=== PATIENT | female | born 1940 | race African-American/Black ===

== ENCOUNTER 2019-05-22 18:58 | Inpatient (IN) | payer OTHER ==
[~2019-05-22] VITALS: Ht 154.9 cm; Wt 53.3 kg
--- NOTE | 2019-05-22 19:09 | Emergency Room Report ---
History of Present Illness General Chief Complaint: General Complaint Source: Patient, Caregiver Present Illness HPI Brought into the emergency department because she refuses to eat. Not eaten for 3 days according to family. She states that she does not want to eat. She denies any pain in place she denies vomiting or diarrhea. Patient anxious. She denies depression. She will not answer as to why she does not want to eat. (Suspect underlying psychiatric or developmental disorder but caretakers not forthcoming.) No fevers, chills, sore throat, chest pain, palpitations, dysuria, abdominal pain, shortness of breath, joint pain, rashes, depression, anxiety, visual changes, headache. Questionable accuracy of answers. 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 Nursing Documentation: PMH: Agreed; PSxH: Agreed Nursing Documentation-PMH Past Medical History Deferred: No Family Available Hx Hypertension: Yes Review of Systems All Other Systems: negative except mentioned in HPI - Accuracy questionable Physical Exam Vital Signs Date Time Temp Pulse Resp B/P (MAP) Pulse Ox O2 Delivery O2 Flow Rate FiO2 05/22/19 19:03 98.2 98 16 183/96 (125) 96 Room Air Sp02 EP Interpretation: reviewed, normal General Appearance: alert, mild distress - With anxiety, Chronically Ill Head: normocephalic, atraumatic Eyes: bilateral eye normal inspection, bilateral eye PERRL, bilateral eye EOMI ENT: moist mucus membranes Neck: supple Respiratory: chest non-tender, lungs clear, normal breath sounds Cardiovascular #1: regular rate, rhythm, no edema Cardiovascular #2: 2+ radial (R) Gastrointestinal: non tender, soft, no mass, no organomegaly Genitourinary: no CVA tenderness Psychiatric: anxious - Perseverating Medical Decision Making Diagnostic Impression: Primary Impression: Failure to thrive Qualified Codes: R62.7 - Adult failure to thrive Additional Impressions: Hypoglycemia Pyuria ER Course Patient presents with refusal to eat for 3 days. Differential includes acute myocardial infarction, occult infection, exacerbation of underlying anxiety or psychiatric illness, dehydration, failure to thrive amongst others. Evaluation with EKG, and labs. Treatment with IV hydration. As the patient is agitated at this time Ativan and Benadryl will be administered. There is a paucity of historical information coming from the caretakers. This is a complicated patient. Nonfocal neurologic exam and clear lungs no imaging studies indicated at the moment. EKG with normal sinus rhythm, left atrial enlargement and nonspecific ST-T wave changes. Prolonged QT interval of 490. Labs with normal white count. CMP unremarkable. Troponin upper limits of normal. Discussed with Dr. Gonzalez who accepts the patient. Urine not obtained until late. Urine is clear. Low blood sugar was not reported by lab. Ordered D50W. Also D51/2NS. Attempt to query medications. Unable to contact exhibit designer or family. Urine returns with pyuria after patient admitted to floor. Laboratory Tests Test 05/22/19 19:15 05/22/19 22:00 White Blood Count 4.7 K/UL (4.8-10.8) L Red Blood Count 4.91 M/UL (4.20-5.40) Hemoglobin 13.5 G/DL (12.0-16.0) Hematocrit 43.8 % (37.0-47.0) Mean Corpuscular Volume 89 FL (80-99) Mean Corpuscular Hemoglobin 27.4 PG (27.0-31.0) Mean Corpuscular Hemoglobin Concent 30.7 G/DL (32.0-36.0) L Red Cell Distribution Width 11.9 % (11.6-14.8) Platelet Count 298 K/UL (150-450) Mean Platelet Volume 9.5 FL (6.5-10.1) Neutrophils (%) (Auto) 53.7 % (45.0-75.0) Lymphocytes (%) (Auto) 31.3 % (20.0-45.0) Monocytes (%) (Auto) 12.1 % (1.0-10.0) H Eosinophils (%) (Auto) 0.6 % (0.0-3.0) Basophils (%) (Auto) 2.4 % (0.0-2.0) H Prothrombin Time 12.7 SEC (9.30-11.50) H Prothrombin Time INR 1.2 (0.9-1.1) H PTT 34 SEC (23-33) H Sodium Level 141 MMOL/L (136-145) Potassium Level 3.5 MMOL/L (3.5-5.1) Chloride Level 100 MMOL/L (98-107) Carbon Dioxide Level 24 MMOL/L (21-32) Anion Gap 17 mmol/L (5-15) H Blood Urea Nitrogen 12 mg/dL (7-18) Creatinine 0.5 MG/DL (0.55-1.30) L Estimate Glomerular Filtration Rate mL/min (>60) Glucose Level 48 MG/DL (74-106) L Calcium Level 10.4 MG/DL (8.5-10.1) H Total Bilirubin 0.8 MG/DL (0.2-1.0) Aspartate Amino Transferase (AST) 21 U/L (15-37) Alanine Aminotransferase (ALT) 18 U/L (12-78) Alkaline Phosphatase 134 U/L (46-116) H Total Creatine Kinase 70 U/L (26-308) Troponin I 0.052 ng/mL (0.000-0.056) Pro-B-Type Natriuretic Peptide 1860 pg/mL (0-125) H Total Protein 8.5 G/DL (6.4-8.2) H Albumin 3.9 G/DL (3.4-5.0) Globulin 4.6 g/dL Albumin/Globulin Ratio 0.8 (1.0-2.7) L Urine Color Pale yellow Urine Appearance Clear Urine pH 5 (4.5-8.0) Urine Specific [place] 1.015 (1.005-1.035) Urine Protein 1+ (NEGATIVE) H Urine Glucose (UA) Negative (NEGATIVE) Urine Ketones 4+ (NEGATIVE) H Urine Blood 1+ (NEGATIVE) H Urine Nitrite Negative (NEGATIVE) Urine Bilirubin Negative (NEGATIVE) Urine Urobilinogen Normal MG/DL (0.0-1.0) Urine Leukocyte Esterase 2+ (NEGATIVE) H Urine RBC 2-4 /HPF (0 - 2) H Urine WBC 10-15 /HPF (0 - 2) H Urine Squamous Epithelial Cells Occasional /LPF Urine Bacteria Few /HPF (NONE) EKG Diagnostic Results Rate: normal Rhythm: NSR ST Segments: no acute changes - Nonspecific ST-T wave changes Rhythm Strip Diag. Results EP Interpretation: yes Rhythm: NSR, no PVC's, no ectopy Last Vital Signs Date Time Temp Pulse Resp B/P (MAP) Pulse Ox O2 Delivery O2 Flow Rate FiO2 05/23/19 00:30 Room Air 05/23/19 00:01 97.3 88 16 156/98 (731) 97 Status: improved Disposition: PLACE IN OBSERVATION Condition: Serious Deepak Patrick MD May 22, 2019 19:09
[2019-05-22] MEDS ORDERED: DiphenhydrAMINE 50mg/ml Inj IVP ONE (19:15)
[2019-05-22] MEDS ORDERED: LORazepam Inj 2mg/ml 1ml IV ONE (19:15)
--- NOTE | 2019-05-22 19:23 | NUR ---
ED Nurse Note: pt brought in by daughter c/c failure to thrive and decrease in appetite, per daughter's statement, last known meal was on and pt hasn't been eating since then. pt's daughter states pt has been refusing eating. pt refused to answer questions and continuously stating " I want to go home". unable to assess pt's A&o status, according to daughter, pt normal neuro status is A&ox4, able to answer questions. noted pt high BP but noted pt in disterss and increase in anxiety. will cont monitor. daughter at the bedside.
--- NOTE | 2019-05-22 19:31 | NUR ---
HAND-OFF: Report given to RN Spenser and endorsed care, pt's daughter at the bedside, resp even and unlabored on RA, iv intact and patent with NS running.
[2019-05-22 19:33] LABS: ANION GAP 17 mmol/L (5-15); BLOOD UREA NITROGEN 12 mg/dL (7-18); CALCIUM 10.4 MG/DL (8.5-10.1); CARBON DIOXIDE 24 MMOL/L (21-32); CHLORIDE 100 MMOL/L (98-107); CREATININE 0.5 MG/DL (0.55-1.30); POTASSIUM 3.5 MMOL/L (3.5-5.1); SODIUM 141 MMOL/L (136-145)
[2019-05-22 19:34] LABS: BASOPHILS % (AUTO) 2.4 % (0.0-2.0); EOSINOPHILS % (AUTO) 0.6 % (0.0-3.0); HEMATOCRIT 43.8 % (37.0-47.0); HEMOGLOBIN 13.5 G/DL (12.0-16.0); LYMPHOCYTES % (AUTO) 31.3 % (20.0-45.0); MEAN CORPUSCULAR VOLUME 89 FL (80-99); MONOCYTES % (AUTO) 12.1 % (1.0-10.0); NEUTROPHILS % (AUTO) 53.7 % (45.0-75.0); PLATELET COUNT 298 K/UL (150-450); RED BLOOD COUNT 4.91 M/UL (4.20-5.40); RED CELL DISTRIBUTION WIDTH 11.9 % (11.6-14.8); WHITE BLOOD COUNT 4.7 K/UL (4.8-10.8)
--- NOTE | 2019-05-22 19:35 | NUR ---
ED Nurse Note: Received report from DEVON Rodríguez. patient at no distress at this time and is more calm. will wait for further orders
[2019-05-22 19:37] LABS: INR 1.2 (0.9-1.1)
[2019-05-22 19:44] LABS: ALANINE AMINOTRANSFERASE 18 U/L (12-78); ALBUMIN 3.9 G/DL (3.4-5.0); ALBUMIN/GLOBULIN RATIO 0.8 (1.0-2.7); ALKALINE PHOSPHATASE 134 U/L (46-116); ASPARTATE AMINO TRANSFERASE 21 U/L (15-37); BILIRUBIN,TOTAL 0.8 MG/DL (0.2-1.0); CREATINE KINASE 70 U/L (26-308)
--- NOTE | 2019-05-22 19:44 | NUR ---
Patient's Daughter RAFAEL contact info: [phone]
[2019-05-22 20:01] VITALS: BP 149/90
--- NOTE | 2019-05-22 20:58 | NUR ---
Face sheet, EKG, dictation and clinicals faxed to Shanti as requested to [phone]
[2019-05-22 23:12] LABS: APPEARANCE,URINE CLEAR; BILIRUBIN, URINE NEGATIVE (NEGATIVE); COLOR,URINE PALE YELLOW; GLUCOSE, URINE (UA) NEGATIVE (NEGATIVE); KETONES,URINE 4+ (NEGATIVE); LEUKOCYTE ESTERASE ,URINE 2+ (NEGATIVE); NITRITE,URINE NEGATIVE (NEGATIVE); PH,URINE 5 (4.5-8.0); PROTEIN,URINE 1+ (NEGATIVE); UROBILINOGEN,URINE NORMAL MG/DL (0.0-1.0)
[2019-05-22] MEDS ORDERED: D5 1/2NS w/KCl 20mEq 1,000 ML IV SCH (23:15)
--- NOTE | 2019-05-22 23:20 | NUR ---
TRANSFER TO FLOOR: Patient transferred to as ordered, per Dr Gonzalez. Report given to DEVON Mota. Belongings and medications given to . Family and or S/O informed of transfer.
--- NOTE | 2019-05-23 | NUR ---
NURSE NOTES: Pt admitted to floor via gurney for FTT. Pt is aox1, calm, and cooperative. Noted several healing pressure sores, pictures taken, initiated wound care protocol. Safe environment provided for patient. Instructed not to get up unassisted. Bed locked in low position, bed alarm on. Spoke with Audrey, daughter. medical information provided by daughter. Per Audrey, unsure of BP medication name & dose. She will bring medication to hospital in AM.
[2019-05-23 00:01] VITALS: BP 156/98
[2019-05-23] MEDS ORDERED: UNOBMED (00:32)
--- NOTE | 2019-05-23 00:50 | NUR ---
NURSE NOTES: Called Dr. Gonzalez for admission orders. MD answered and adm orders received. Will carry out.
[2019-05-23 04:00] VITALS: BP 152/81
--- NOTE | 2019-05-23 07:13 | NUR ---
HAND-OFF: Report given to Ivanna OSORIO.
[2019-05-23 08:00] VITALS: BP 136/82
--- NOTE | 2019-05-23 08:11 | NUR ---
NURSE NOTES: Pt resting in bed. awake, a/O x 2, forgetful, right side weakness post CVA. Dressing on sacral and hip CDI, order to see wound nurse am. tolerating diet, no cough, no N/V. speech eval am . bed alarm on. call light within reach. fall precaution maintained. will continue to monitor. Addendum: 05/23/19 at 1849 by Ivanna Kim RN SCDs on , tolerating well. Addendum: 05/23/19 at 1851 by Ivanna Kim RN pt refused SCDs, will continue to monitor.
[2019-05-23] MEDS ORDERED: LEXAPRO10 MG ORAL (10:40)
[2019-05-23] MEDS ORDERED: VITAMIN C500 M1 ORAL (10:40)
[2019-05-23] MEDS ORDERED: ALBUTEROL2.5 MG/3 M INH (10:40)
[2019-05-23] MEDS ORDERED: HYDROCHLOROTH12.5 MG ORAL (10:40)
--- NOTE | 2019-05-23 11:09 | NUR ---
*-* NO INSURANCE INFORMATION IN THE BAR UNABLE TO SEND CLINICALS AND REVIEWS *-*
[2019-05-23 12:00] VITALS: BP 140/77
--- NOTE | 2019-05-23 13:41 | NUR ---
RD ASSESSMENT & RECOMMENDATIONS SEE CARE ACTIVITY FOR COMPLETE ASSESSMENT DAILY ESTIMATED NEEDS: Needs based on cardiac, wound/ 52kg 25-30 kcals/kg 5773-4016 total kcals 1.25-1.5 g protein/kg 65-78 g total protein 25-30 mL/kg 9323-0997 total fluid mLs NUTRITION DIAGNOSIS: * Increased kcal/prot intake needs R/T wound healing as evidenced by pt admitted w/ sacral, BL heels, and rt hip wounds per photos, pending eval, admitted w/ FTT dx w/ refusing to eat. CURRENT DIET:REGULAR PO DIET RECOMMENDATIONS: Liberalized REGULAR w/ poor PO + texture per LIFE SKILLS EDUCATOR ADDITIONAL RECOMMENDATIONS: * Calibrated bedscale wt for accurate CBW * Add LOW NA to diet w/ PO intake consistently >50% * Ensure Enlive TID w/ meals * Wound healing: Add MVI x 1, Vit C 250mg QD add Edu 1pkt BID * F/up w/ VELMA COUNT x 72 hrs * Monitor lytes, replete as needed
--- NOTE | 2019-05-23 14:54 | Diagnostic Imaging Report ---
Indication: Altered level of consciousness Technique: One view of the chest Comparison: none Findings: The lungs and pleural spaces are clear. The heart is upper limits normal in size. The aorta is tortuous and ectatic. Impression: No acute process
--- NOTE | 2019-05-23 15:22 | NUR ---
ST NOTES: REFERRED BY DR KING FOR A SWALLOW EVAL, SEE FULL REPORT (LIMITED ASSESSMENT) DYSPHAGIA RISK FACTORS FOR THIS 79 Y.O.F.: ACUTE ISSUES: PATIENT NOT EATING FOR 3 DAYS PER FAMILY, HYPOGLYCEMIA, AND PYURIA. H/O CVA RSW (? DATE AND PT CANNOT RECALL WHEN IT HAPPENED). AT HOME PT SAID SHE WAS ON A REGULAR DIET/LIQUIDS AND DENIED ANY SWALLOWING PROBLEMS. PT SAID SHE DID NOT WANT TO EAT NOR DRINK AND SHE DID NOT SAY WHY NOR ANSWER THE QUESTION ABOUT IT BEING AN APPETITE ISSUE. SHE DID NOT SAY IF THERE WERE ANY SPECIFIC FOODS SHE WANTED. APPEARED TO HAVE ADEQUATE DENTITION. ABLE TO EXPRESS HERSELF IN A QUIET VOICE. MAY BENEFIT FROM A CHOPPED DIET ONLY IF RECEPTIVE (BUT AMPOULE INSPECTOR CAN ALSO CUT FOOD FOR HER SO IT IS MORE PRESENTABLE AND APPEALING). INITIAL IMPRESSIONS: GROSSLY FUNCTIONAL SWALLOW WITH SIPS OF THIN LIQUIDS WITH EQUIPMENT RECORDS SUPERVISOR AND RN W/O OVERT ASPIRATION. PER RN, PT OBSERVED WITH EGGS AND APPEARED TO HAVE A GROSSLY FUNCTIONAL SWALLOW W/O OVERT ASPIRATION. TOOK 50% OF BREAKFAST (INCLUDING ONE BITE OF TOAST) AND REFUSED LUNCH AND PUREED/MASTICATED SOLID TRIALS WITH EQUIPMENT RECORDS SUPERVISOR. MAY HAVE A SILENT ASPIRATION RISK DUE TO CVA HX BUT LUNGS ARE CLEAR NOW. RECOMMENDATIONS: CONSIDER CONTINUE WITH CURRENT REGULAR TEXTURE DIET AND THIN LIQUIDS FOR NOW. (HAVE AMPOULE INSPECTOR CUT FOOD FOR HER). CONSIDER GIVING HER FOODS OF PREFERENCE (FIELD SERVICES DIRECTOR CAN MEET WITH HER AND FAMILY CAN BE ASKED TO BRING IN FAVORITE FOODS IF SHE IS RECEPTIVE). CONSIDER SENDING HIGH CALORIE SUPPLEMENTS (FLAVOR SHE LIKES). PER RN, CALORIE COUNT ORDERED. CONSIDER PSYCH EVAL TO FURTHER EXPLORE WITH THE PATIENT AND THE FAMILY WHY THE PATIENT DOES NOT WANT TO EAT. ? ANY PRIOR H/O OF AN EATING DISORDER OR PSYCHIATRIC HISTORY PARTICULARLY POST CVA (TRY TO FIND THE DATE OF CVA). WILL TRY TO OBSERVE TOMORROW WITH PUREED AND MASTICATED SOLIDS UNLESS PT REFUSES PO TRIALS. UNLIKELY RECEPTIVE TO MOD BARIUM SWALLOW STUDY. D/W DEVON LAGUERRE AND PATIENT
[2019-05-23 16:00] VITALS: BP 149/86
--- NOTE | 2019-05-23 19:39 | NUR ---
HAND-OFF: Report given to Araceli OSORIO.
[2019-05-23 20:00] VITALS: BP 133/88
[2019-05-24] VITALS: BP 143/85
[2019-05-24 04:00] VITALS: BP 142/88
--- NOTE | 2019-05-24 04:30 | History and Physical Report ---
DATE OF ADMISSION: 05/22/2019 HISTORY OF PRESENT ILLNESS: This is an elderly female approximately 79-year-old, who was brought in by family overnight to the emergency room reporting that she is refusing to eat. Not much information was available yesterday or this morning. The patient herself but is unable to convey her facts to me. She mostly answered in monosyllables and denies any pain. No medical or surgical problems. Apparently, her daughter is for the list of her medications as per bedside nursing. PAST HISTORY AND PREVIOUS SURGICAL HISTORY: Not known. HOME MEDICATIONS: None available at this time. ALLERGIES: None known. REVIEW OF SYSTEMS: Unreliable. PHYSICAL EXAMINATION: GENERAL: Reveals an elderly female. VITAL SIGNS: Blood pressure 126/60, heart rate . She is afebrile. HEENT: Remarkable for partially closed left eye with decreased vision in the left eye . NECK: Supple. No adenopathy. CHEST: Clear to auscultation. ABDOMEN: Soft, nontender. There is no organomegaly. NEUROLOGIC: The patient is mostly uncooperative. LABORATORY AND DIAGNOSTIC DATA: Lab testing shows normal CBC and BMP. ProBNP is slightly high. BUN is mildly elevated. EKG, normal sinus rhythm. IMPRESSION: 1. Anorexia. 2. Failure to thrive. 3. Azotemia. 4. Decreased vision in left eye. DISCUSSION: Await family arrival so that more information may be obtained, particularly regarding her underlying medical, psychiatric and surgical history. I have requested a swallow evaluation as well as a calorie count. She may benefit from enteral feeding unless she is able to consume a reasonable amount of calories. Consider additional evaluations as available. We will continue to follow . Aaron Gonzalez M.D. DR: FINA JOB#: [id number] CC:
--- NOTE | 2019-05-24 04:53 | NUR ---
NURSE NOTES: Patient refused anything by mouth throughout whole shift. No food or liquids, patient covers her mouth and closes her lips when offered something to eat or drink. Oral care performed by patient independently.
--- NOTE | 2019-05-24 07:38 | NUR ---
HAND-OFF: Report given to DEVON Jimenez.
[2019-05-24 08:00] VITALS: BP 134/95
--- NOTE | 2019-05-24 08:03 | NUR ---
NURSE NOTES: Patient alert x2, confused; on room air, no sing of distress and shortness of breath; no sing of chest pain; IV RFA 20G NS 50cc running; patine of Calorie count fro 72 Hours, starting from 05/23/19 Breakfast, envelope at the bed side, registered nursing professor aware; Puriwk in place, collects yellow urine; side rails up x2, breaks engaged, bed at lowest position; will keep monitoring.
[2019-05-24] MEDS: Ascorbic Acid 500mg tab ORAL SCH (09:00)
[2019-05-24] MEDS: hydroCHLOROthiazide 12.5mg TAB ORAL SCH (09:00)
--- NOTE | 2019-05-24 11:34 | General Progress Note ---
Assessment/Plan Problem List: (1) Failure to thrive SNOMED: [id number] Qualifiers: Qualified Codes: R62.7 - Adult failure to thrive Assessment/Plan: patient refusing to eat D/W family at length will need pych eval PEG plans if this continues Subjective ROS Limited/Unobtainable: No Allergies: Coded Allergies: No Known Allergies (Unverified , 05/22/19) Objective Last 24 Hour Vital Signs Date Time Temp Pulse Resp B/P (MAP) Pulse Ox O2 Delivery O2 Flow Rate FiO2 05/24/19 09:00 Room Air 05/24/19 08:00 97.3 61 20 134/95 (108) 98 05/24/19 04:00 98.2 89 18 142/88 (106) 05/24/19 00:00 97.5 78 18 143/85 (104) 05/23/19 23:00 Room Air 05/23/19 20:00 97.7 92 20 133/88 (103) 05/23/19 16:00 98.1 94 20 149/86 (107) 05/23/19 12:00 98.1 90 20 140/77 (98) Intake and Output 05/23/19 05/24/19 19:00 07:00 Intake Total 360 ml 400 ml Output Total 400 ml Balance 360 ml 0 ml Intake Oral 360 ml IV Total 400 ml Output Urine Total 400 ml # Voids 2 Height (Feet): 5 Height (Inches): 1.00 Weight (Pounds): 114 General Appearance: no apparent distress EENT: normal ENT inspection Neck: supple Cardiovascular: normal rate Respiratory/Chest: decreased breath sounds Abdomen: normal bowel sounds, non tender, soft Extremities: non-tender Dagoberto Montenegro MD May 24, 2019 11:34
[2019-05-24 12:00] VITALS: BP 131/83
--- NOTE | 2019-05-24 12:59 | Pulmonology Progress Note ---
Assessment/Plan Assessment/Plan IMPRESSION: 1. Anorexia. 2. Failure to thrive. 3. Azotemia. 4. Decreased vision in left eye. 5. Sacral decubitus DISCUSSION: I have requested a swallow evaluation as well as a calorie count. She may benefit from enteral feeding unless she is able to consume a reasonable amount of calories. Armando consult psych and GI Will also consult student education specialist and surgery Aaron Gonzalez M.D. Subjective Interval Events: Not eating; refusing meals Constitutional: Reports: no symptoms HEENT: Repors: no symptoms Respiratory: Reports: no symptoms Cardiovascular: Reports: no symptoms Gastrointestinal/Abdominal: Reports: no symptoms Genitourinary: Reports: no symptoms Allergies: Coded Allergies: No Known Allergies (Unverified , 05/22/19) Objective Last 24 Hour Vital Signs Date Time Temp Pulse Resp B/P (MAP) Pulse Ox O2 Delivery O2 Flow Rate FiO2 05/24/19 12:00 97.2 92 20 131/83 (99) 97 05/24/19 09:00 Room Air 05/24/19 08:00 97.3 61 20 134/95 (108) 98 05/24/19 04:00 98.2 89 18 142/88 (106) 05/24/19 00:00 97.5 78 18 143/85 (104) 05/23/19 23:00 Room Air 05/23/19 20:00 97.7 92 20 133/88 (103) 05/23/19 16:00 98.1 94 20 149/86 (107) Intake and Output 05/23/19 05/24/19 19:00 07:00 Intake Total 360 ml 400 ml Output Total 400 ml Balance 360 ml 0 ml Intake Oral 360 ml IV Total 400 ml Output Urine Total 400 ml # Voids 2 General Appearance: no acute distress HEENT: atraumatic Respiratory/Chest: chest wall non-tender, lungs clear Cardiovascular: normal peripheral pulses, normal rate Abdomen: normal bowel sounds Microbiology Date/Time Source Procedure Growth Status 05/22/19 22:00 Urine,Clean Catch Urine Culture - Preliminary Resulted Current Medications Medications (Trade) Dose Ordered Sig/Sky Route PRN Reason Start Time Stop Time Status Last Admin Dose Admin Ascorbic Acid (Vitamin C) 500 mg DAILY ORAL 05/24/19 09:00 06/23/19 08:59 Escitalopram Oxalate (Lexapro) 10 mg DAILY ORAL 05/24/19 09:00 06/23/19 08:59 Hydrochlorothiazide (Hydrodiuril) 12.5 mg DAILY ORAL 05/24/19 09:00 06/23/19 08:59 Sodium Chloride 1,000 ml @ 50 mls/hr Q20H IV 05/23/19 01:15 06/22/19 01:14 05/23/19 21:51 Aaron Gonzalez MD May 24, 2019 12:59
--- NOTE | 2019-05-24 13:39 | NUR ---
*-* INSURANCE *-* ALL AVAILABLE CLINICALS HAVE BEEN FAXED TO: MELINA LYNCH CM:BLAS #[phone] FAX#[phone] REVIEWS/CLINICALS
--- NOTE | 2019-05-24 14:24 | NUR ---
NURSE NOTES:WOUND CARE NOTES: Pt presented on admission with multiple pressure injuries. R heel is maroon with scattered purple areas . Base of heel is fluctuant. Pt complained of pain when minimally palpated.(L)4.5cm x (W)7cm. L heel maroon with fluctuance. Pt also complained of pain when minimally palpated.(L)4.7cm x (W)5cm. Scattered areas of hyperpigmentation noted to buttocks. Tx.Plan: Apply Cavilon Skin Barrier to R and L heel. Cover each heel with Optifoam drsg.Change every 7 days and prn. Apply Moisture Barrier Paste to buttocks. Cover with Optifoam drsg. Change every 3 days and prn. Reposition at least every 2hours or as tolerated. Off-load heels with pillow.
--- NOTE | 2019-05-24 15:45 | NUR ---
NURSE NOTES: Wound care provided, patient tolerated well.
--- NOTE | 2019-05-24 15:59 | Consultation ---
History of Present Illness General Date patient seen: May 24, 2019 Reason for Hospitalization: General Complaint Present Illness HPI This is a very pleasant 79-year-old female who presented with failure to thrive , decreased appetite, and ability to eat. As per family patient was unable to eat for the past few days and has been losing weight. No nausea vomiting fever chills. No abdominal pain. No complaints. Labs noted. Physical exam with forming decubitus. Surgery called to evaluate and assist with care. Patient seen, patient evaluated, chart reviewed. Allergies: Coded Allergies: No Known Allergies (Unverified , 05/22/19) Medication History Scheduled Ascorbic Acid* (Vitamin C*), 500 MG ORAL DAILY, (Reported) Escitalopram Oxalate* (Lexapro*), 10 MG ORAL DAILY, (Reported) Hydrochlorothiazide* (Hydrochlorothiazide*), 12.5 MG ORAL DAILY, (Reported) Scheduled PRN Albuterol Sulfate* (Albuterol Sulfate Hhn*), 3 ML INH Q4H PRN for Shortness of Breath, (Reported) Miscellaneous Medications Unable to Obtain Medications (Unable To Obtain Meds), (Reported) Patient History Limited by: medical condition History Provided By: Patient, Medical Record, PMD Healthcare decision maker Audrey [phone] Resuscitation status Full Code Advanced Directive on File Past Medical/Surgical History Past Medical/Surgical History: (1) Decubital ulcer (2) Severe protein-calorie malnutrition (3) Pyuria (4) Failure to thrive (5) Hypoglycemia Review of Systems Review of Symptoms General ROS: no weight loss or fever Psychological ROS: no depression or mood changes, no memory loss Ophthalmic ROS: no visual changes or eye irritation ENT ROS: no nasal congestion, hearing loss, dizziness Allergy and Immunology ROS: no allergic symptoms or urticaria Hematological and Lymphatic ROS: no swollen glands, unusual bleeding or bruising Endocrine ROS: no polyuria, polydipsia, weight changes, temperature intolerance Respiratory ROS: no cough, shortness of breath, or wheezing Cardiovascular ROS: no chest pain or dyspnea on exertion Gastrointestinal ROS: denies abdominal pain, bright red blood in stool. Musculoskeletal ROS: no myalgias or arthralgias Neurological ROS: no TIA or stroke symptoms Dermatological ROS: no new or changing skin lesions, rashes or pruritis Physical Exam Physical Exam General appearance: alert, cooperative, no distress, appears stated age Head: Normocephalic, without obvious abnormality, atraumatic Eyes: conjunctivae/corneas clear. PERRL, EOM's intact. Fundi benign Throat: Lips, mucosa, and tongue normal. Teeth and gums normal Neck: supple, symmetrical, trachea midline, no adenopathy, thyroid: not enlarged, symmetric, no tenderness/mass/nodules, no carotid bruit and no JVD Lungs: clear to auscultation bilaterally Heart: regular rate and rhythm, S1, S2 normal, no murmur, click, rub or gallop Abdomen: soft, non-tender. Bowel sounds normal. No masses, no organomegaly Extremities: extremities normal, atraumatic, no cyanosis or edema Pulses: 2+ and symmetric Skin: Skin color, texture, turgor normal. No rashes or lesions Neurologic: Grossly normal Last 24 Hour Vital Signs Date Time Temp Pulse Resp B/P (MAP) Pulse Ox O2 Delivery O2 Flow Rate FiO2 05/24/19 12:00 97.2 92 20 131/83 (99) 97 05/24/19 09:00 Room Air 05/24/19 08:00 97.3 61 20 134/95 (108) 98 05/24/19 04:00 98.2 89 18 142/88 (106) 05/24/19 00:00 97.5 78 18 143/85 (104) 05/23/19 23:00 Room Air 05/23/19 20:00 97.7 92 20 133/88 (103) 05/23/19 16:00 98.1 94 20 149/86 (107) Intake and Output 05/23/19 05/24/19 19:00 07:00 Intake Total 360 ml 400 ml Output Total 400 ml Balance 360 ml 0 ml Intake Oral 360 ml IV Total 400 ml Output Urine Total 400 ml # Voids 2 Height (Feet): 5 Height (Inches): 1.00 Weight (Pounds): 114 Medications Current Medications Medications (Trade) Dose Ordered Sig/Sky Route PRN Reason Start Time Stop Time Status Last Admin Dose Admin Ascorbic Acid (Vitamin C) 500 mg DAILY ORAL 05/24/19 09:00 06/23/19 08:59 Escitalopram Oxalate (Lexapro) 10 mg DAILY ORAL 05/24/19 09:00 06/23/19 08:59 Hydrochlorothiazide (Hydrodiuril) 12.5 mg DAILY ORAL 05/24/19 09:00 06/23/19 08:59 Sodium Chloride 1,000 ml @ 50 mls/hr Q20H IV 05/23/19 01:15 06/22/19 01:14 05/23/19 21:51 Assessment/Plan Problem List: (1) Failure to thrive Assessment & Plan: Patient with decreased appetite and ability. No functional organic inability identified. Patient nutritionally deprived and forming wounds as well. Recommend psych eval Considerations for PEG Appreciate GI input SNOMED: 86741344 Qualifiers: Qualified Codes: R62.7 - Adult failure to thrive (2) Severe protein-calorie malnutrition Assessment & Plan: AILY ESTIMATED NEEDS: Needs based on cardiac, wound/ 52kg 25-30 kcals/kg 3234-2368 total kcals 1.25-1.5 g protein/kg 65-78 g total protein 25-30 mL/kg 0062-0164 total fluid mLs NUTRITION DIAGNOSIS: * Increased kcal/prot intake needs R/T wound healing as evidenced by pt admitted w/ sacral, BL heels, and rt hip wounds per photos, pending eval, admitted w/ FTT dx w/ refusing to eat. CURRENT DIET:REGULAR PO DIET RECOMMENDATIONS: Liberalized REGULAR w/ poor PO + texture per CLINICAL EDUCATION COORDINATOR ADDITIONAL RECOMMENDATIONS: * Calibrated bedscale wt for accurate CBW * Add LOW NA to diet w/ PO intake consistently >50% * Ensure Enlive TID w/ meals * Wound healing: Add MVI x 1, Vit C 250mg QD add Deu 1pkt BID * F/up w/ VELMA COUNT x 72 hrs * Monitor lytes, replete as needed ICD Codes: E43 - Unspecified severe protein-calorie malnutrition SNOMED: 515406533, 051213176, 317014139 (3) Decubital ulcer Assessment & Plan: Pt presented on admission with multiple pressure injuries. R heel is maroon with scattered purple areas . Base of heel is fluctuant. Pt complained of pain when minimally palpated.(L)4.5cm x (W)7cm. L heel maroon with fluctuance. Pt also complained of pain when minimally palpated.(L)4.7cm x (W)5cm. Scattered areas of hyperpigmentation noted to buttocks. Tx.Plan: Apply Cavilon Skin Barrier to R and L heel. Cover each heel with Optifoam drsg.Change every 7 days and prn. Apply Moisture Barrier Paste to buttocks. Cover with Optifoam drsg. Change every 3 days and prn. Reposition at least every 2hours or as tolerated. Off-load heels with pillow. ICD Codes: L89.90 - Pressure ulcer of unspecified site, unspecified stage SNOMED: 358407793 Howard Mcclellan May 24, 2019 15:59
[2019-05-24 16:00] VITALS: BP 145/88
--- NOTE | 2019-05-24 16:10 | NUR ---
CASE MANAGEMENT:REVIEW 79 YR OLD FEMALE FROM HOME TO ER CC; DID NOT EAT SINCE THURSDAY SI: FTT. HYPOGLYCEMIA. PYURIA 98.2 98 16 183/96 96% ON RA GLUCOSE-48 IS: 1L NS BOLUS X2 IV BENADRYL IV ATIVAN : TO MED/SURG IS: IVF@125/HR
--- NOTE | 2019-05-24 19:42 | NUR ---
HAND-OFF: Report given to DEVON Soares.
[2019-05-24 20:00] VITALS: BP 146/86
--- NOTE | 2019-05-24 20:05 | NUR ---
NURSE NOTES: Received patient in bed, awake, alert, oriented x1/2, bedbound, on room air, patient is incontinent of bowel and bladder, on regular diet and a feeder. IV site is clean dry and intact, bed is in low position, locked and alarm is on. Will continue to follow up for safety and comfort.
[2019-05-25] VITALS: BP 145/89
[2019-05-25 04:00] VITALS: BP 144/67
--- NOTE | 2019-05-25 04:30 | Consultation ---
DATE OF CONSULTATION: 05/25/2019 HISTORY OF PRESENT ILLNESS: The patient is a 79-year-old female with a history of multiple medical comorbidities including depression, decubitus wound, dementia, and failure to thrive, admitted to the hospital due to weight loss and not eating. The patient is unable to provide history, somewhat confused, disoriented, poor historian, and poor memory. PAST PSYCHIATRIC HISTORY: Dementia. PAST MEDICAL HISTORY: As above. ALLERGIES: No known drug allergies. SUBSTANCE ABUSE HISTORY: No known history of illicit drug use or alcohol. MENTAL STATUS EXAMINATION: The patient is oriented x2. Mood is depressed. Affect is constricted. Congruent with mood. Thought process, linear and goal oriented. Thought content, no suicidal or homicidal ideations. Cognition is impaired. Insight and judgment is impaired. ASSESSMENT: [place] I Dementia. Major depressive disorder. [place] II Deferred. [place] III Failure to thrive. Bedford IV [id number]. [place] V 20. PLAN: 1. The patient will be started on Remeron 50 mg at bedtime. 2. The patient will be continued on Lexapro that was started by Dr. Gonzalez. 3. Provided the patient with reality orientation. Cata Roblero M.D. DR: AVE JOB#: [id number] CC:
[2019-05-25 05:51] LABS: HEMATOCRIT 39.8 % (37.0-47.0); HEMOGLOBIN 12.3 G/DL (12.0-16.0); MEAN CORPUSCULAR VOLUME 89 FL (80-99); MONOCYTES % (AUTO) 13.4 % (1.0-10.0); NEUTROPHILS % (AUTO) 38.7 % (45.0-75.0); PLATELET COUNT 267 K/UL (150-450); RED BLOOD COUNT 4.45 M/UL (4.20-5.40); WHITE BLOOD COUNT 4.2 K/UL (4.8-10.8)
[2019-05-25 05:54] LABS: INR 1.2 (0.9-1.1)
[2019-05-25 05:58] LABS: ALANINE AMINOTRANSFERASE 13 U/L (12-78); ALBUMIN 3.2 G/DL (3.4-5.0); ALBUMIN/GLOBULIN RATIO 0.8 (1.0-2.7); ALKALINE PHOSPHATASE 99 U/L (46-116); AMYLASE 32 U/L (25-115); ANION GAP 13 mmol/L (5-15); ASPARTATE AMINO TRANSFERASE 25 U/L (15-37); BILIRUBIN,TOTAL 0.8 MG/DL (0.2-1.0); BLOOD UREA NITROGEN 3 mg/dL (7-18); CALCIUM 9.3 MG/DL (8.5-10.1); CARBON DIOXIDE 24 MMOL/L (21-32); CHLORIDE 105 MMOL/L (98-107); CREATININE 0.3 MG/DL (0.55-1.30); POTASSIUM 3.5 MMOL/L (3.5-5.1); SODIUM 142 MMOL/L (136-145)
--- NOTE | 2019-05-25 07:28 | NUR ---
HAND-OFF: Report given to Dione OSORIO.
--- NOTE | 2019-05-25 07:54 | NUR ---
NURSE NOTES: Patient awake, alert x1, confused; IV RFA 20G NS 50cc running; side rails up x2, breaks engaged, bed at lowest position; bed alarm on; patient on calory count, envelop at the bed side, nursing program director Fidencio is aware; will keep monitoring.
[2019-05-25 08:00] VITALS: BP 138/71
[2019-05-25] MEDS: hydroCHLOROthiazide 12.5mg TAB ORAL SCH ×2 (09:00→09:24)
[2019-05-25] MEDS: Ascorbic Acid 500mg tab ORAL SCH ×2 (09:00→09:24)
--- NOTE | 2019-05-25 09:50 | Pulmonology Progress Note ---
Assessment/Plan Assessment/Plan IMPRESSION: 1. Anorexia. 2. Failure to thrive. 3. Azotemia. 4. Decreased vision in left eye. 5. Heel decubitus DISCUSSION: I have requested a swallow evaluation as well as a calorie count. She may benefit from enteral feeding unless she is able to consume a reasonable amount of calories. Seen by psych and GI Seen by icu specialist and surgery Aaron Gonzalez M.D. Subjective Interval Events: None new Constitutional: Reports: no symptoms HEENT: Repors: no symptoms Respiratory: Reports: no symptoms Cardiovascular: Reports: no symptoms Gastrointestinal/Abdominal: Reports: no symptoms Allergies: Coded Allergies: No Known Allergies (Unverified , 05/22/19) Objective Last 24 Hour Vital Signs Date Time Temp Pulse Resp B/P (MAP) Pulse Ox O2 Delivery O2 Flow Rate FiO2 05/25/19 08:00 98.0 80 20 138/71 (93) 99 05/25/19 04:00 97.9 61 20 144/67 (92) 97 05/25/19 00:00 98.2 80 20 145/89 (107) 98 05/24/19 21:39 Room Air 05/24/19 20:00 98.6 91 20 146/86 (106) 98 05/24/19 16:00 97.8 88 20 145/88 (107) 98 05/24/19 12:00 97.2 92 20 131/83 (99) 97 Intake and Output 05/24/19 05/25/19 19:00 07:00 Intake Total 550 ml 50 ml Output Total 300 ml Balance 250 ml 50 ml IV Total 550 ml 50 ml Output Urine Total 300 ml General Appearance: no acute distress HEENT: normocephalic Respiratory/Chest: chest wall non-tender, lungs clear Cardiovascular: normal peripheral pulses, normal rate Abdomen: normal bowel sounds Microbiology Date/Time Source Procedure Growth Status 05/22/19 22:00 Urine,Clean Catch Urine Culture - Preliminary Streptococcus Species Resulted Laboratory Tests 05/25/19 05:15: White Blood Count 4.2L, Red Blood Count 4.45, Hemoglobin 12.3, Hematocrit 39.8, Mean Corpuscular Volume 89, Mean Corpuscular Hemoglobin 27.7, Mean Corpuscular Hemoglobin Concent 31.0L, Red Cell Distribution Width 13.0, Platelet Count 267, Mean Platelet Volume 9.2, Neutrophils (%) (Auto) 38.7L, Lymphocytes (%) (Auto) 44.0, Monocytes (%) (Auto) 13.4H, Eosinophils (%) (Auto) 1.0, Basophils (%) ( Auto) 3.0H, Erythrocyte Sedimentation Rate 50H, Prothrombin Time 12.3H, Prothromb Time International Ratio 1.2H, Activated Partial Thromboplast Time 31 , Sodium Level 142, Potassium Level 3.5, Chloride Level 105, Carbon Dioxide Level 24, Anion Gap 13, Blood Urea Nitrogen 3L, Creatinine 0.3L, Estimat Glomerular Filtration Rate , Glucose Level 41L, Calcium Level 9.3, Total Bilirubin 0.8, Aspartate Amino Transf (AST/SGOT) 25, Alanine Aminotransferase ( ALT/SGPT) 13, Alkaline Phosphatase 99, C-Reactive Protein, Quantitative 0.9, Total Protein 7.1, Albumin 3.2L, Globulin 3.9, Albumin/Globulin Ratio 0.8L, Prealbumin [Pending], Amylase Level 32, Lipase 97 Current Medications Medications (Trade) Dose Ordered Sig/Sky Route PRN Reason Start Time Stop Time Status Last Admin Dose Admin Ascorbic Acid (Vitamin C) 500 mg DAILY ORAL 05/24/19 09:00 06/23/19 08:59 Escitalopram Oxalate (Lexapro) 10 mg DAILY ORAL 05/24/19 09:00 06/23/19 08:59 Hydrochlorothiazide (Hydrodiuril) 12.5 mg DAILY ORAL 05/24/19 09:00 06/23/19 08:59 Mirtazapine (Remeron) 15 mg BEDTIME ORAL 05/25/19 21:00 06/24/19 20:59 Sodium Chloride 1,000 ml @ 50 mls/hr Q20H IV 05/23/19 01:15 06/22/19 01:14 05/24/19 17:33 Aaron Gonzalez MD May 25, 2019 09:50
--- NOTE | 2019-05-25 11:18 | NUR ---
CASE MANAGEMENT:REVIEW 05/25/19 SI: ANOREXIA. FTT. AZOTEMIA HEEL DECUB 98.0 80 20 138/71 99% ON RA WBC-4.2 GLUCOSE-41 IS: REMERON PO QHS HCTZ PO QD VIT C PO QD LEXAPRO PO QD IVF@50/HR : MED/SURG STATUS 4EAST PLAN: SWALLOW EVAL CALORIE COUNT
[2019-05-25 12:00] VITALS: BP 143/80
--- NOTE | 2019-05-25 12:37 | GI Progress Note ---
Assessment/Plan Problems: (1) Decubital ulcer ICD Codes: L89.90 - Pressure ulcer of unspecified site, unspecified stage SNOMED: 627998384 (2) Severe protein-calorie malnutrition ICD Codes: E43 - Unspecified severe protein-calorie malnutrition SNOMED: 064890041, 790034825, 760544098 (3) Hypoglycemia ICD Codes: E16.2 - Hypoglycemia, unspecified SNOMED: 758817846 (4) Failure to thrive SNOMED: 52449613 Qualifiers: Qualified Codes: R62.7 - Adult failure to thrive Status: unchanged Status Narrative Discussed with Dr. Montenegro. Assessment/Plan patient refusing to eat D/W family at length calorie count ST eval follow up psych eval PEG plans if this continues The patient was seen and examined at bedside and all new and available data was reviewed in the patients chart. I agree with the above findings, impression and plan. (Patient seen earlier today. Signature stamp does not reflect patient encounter time.). - Dagoberto Montenegro MD Subjective Subjective limited Objective Last 24 Hour Vital Signs Date Time Temp Pulse Resp B/P (MAP) Pulse Ox O2 Delivery O2 Flow Rate FiO2 05/25/19 09:00 Room Air 05/25/19 08:00 98.0 80 20 138/71 (93) 99 05/25/19 04:00 97.9 61 20 144/67 (92) 97 05/25/19 00:00 98.2 80 20 145/89 (107) 98 05/24/19 21:39 Room Air 05/24/19 20:00 98.6 91 20 146/86 (106) 98 05/24/19 16:00 97.8 88 20 145/88 (107) 98 Intake and Output 05/24/19 05/25/19 19:00 07:00 Intake Total 550 ml 100 ml Output Total 300 ml Balance 250 ml 100 ml IV Total 550 ml 100 ml Output Urine Total 300 ml Laboratory Tests Test 05/25/19 05:15 White Blood Count 4.2 K/UL (4.8-10.8) L Red Blood Count 4.45 M/UL (4.20-5.40) Hemoglobin 12.3 G/DL (12.0-16.0) Hematocrit 39.8 % (37.0-47.0) Mean Corpuscular Volume 89 FL (80-99) Mean Corpuscular Hemoglobin 27.7 PG (27.0-31.0) Mean Corpuscular Hemoglobin Concent 31.0 G/DL (32.0-36.0) L Red Cell Distribution Width 13.0 % (11.6-14.8) Platelet Count 267 K/UL (150-450) Mean Platelet Volume 9.2 FL (6.5-10.1) Neutrophils (%) (Auto) 38.7 % (45.0-75.0) L Lymphocytes (%) (Auto) 44.0 % (20.0-45.0) Monocytes (%) (Auto) 13.4 % (1.0-10.0) H Eosinophils (%) (Auto) 1.0 % (0.0-3.0) Basophils (%) (Auto) 3.0 % (0.0-2.0) H Erythrocyte Sedimentation Rate 50 MM/HR (0-30) H Prothrombin Time 12.3 SEC (9.30-11.50) H Prothromb Time International Ratio 1.2 (0.9-1.1) H Activated Partial Thromboplast Time 31 SEC (23-33) Sodium Level 142 MMOL/L (136-145) Potassium Level 3.5 MMOL/L (3.5-5.1) Chloride Level 105 MMOL/L (98-107) Carbon Dioxide Level 24 MMOL/L (21-32) Anion Gap 13 mmol/L (5-15) Blood Urea Nitrogen 3 mg/dL (7-18) L Creatinine 0.3 MG/DL (0.55-1.30) L Estimat Glomerular Filtration Rate mL/min (>60) Glucose Level 41 MG/DL (74-106) L Calcium Level 9.3 MG/DL (8.5-10.1) Total Bilirubin 0.8 MG/DL (0.2-1.0) Aspartate Amino Transf (AST/SGOT) 25 U/L (15-37) Alanine Aminotransferase (ALT/SGPT) 13 U/L (12-78) Alkaline Phosphatase 99 U/L (46-116) C-Reactive Protein, Quantitative 0.9 mg/dL (0.00-0.90) Total Protein 7.1 G/DL (6.4-8.2) Albumin 3.2 G/DL (3.4-5.0) L Globulin 3.9 g/dL Albumin/Globulin Ratio 0.8 (1.0-2.7) L Prealbumin Pending Amylase Level 32 U/L (25-115) Lipase 97 U/L (73-393) Height (Feet): 5 Height (Inches): 1.00 Weight (Pounds): 114 General Appearance: alert Cardiovascular: normal rate Respiratory/Chest: normal breath sounds Abdominal Exam: soft Jessica Nichole COW WASHER May 25, 2019 12:37
--- NOTE | 2019-05-25 13:03 | NUR ---
INSURANCE UPDATED CLINICALS and REVIEW HAVE BEEN FAXED PLEASE FAX THE REVIEW AND CLINICAL TO: CM:BLAS #[phone] FAX#[phone] REVIEWS/CLINICALS
--- NOTE | 2019-05-25 14:33 | NUR ---
DISCHARGE SWALLOW/SPEECH THERAPY SUMMARY: SEEN FOR DYSPHAGIA, SEE SWALLOW EVAL. PATIENT IS REFUSING TO TAKE PO WITH DANNY, ELLIS, AND ROLL SHOP SUPERVISOR TODAY. PER RNREINALDO, THE PATIENT TO BE SEEN BY PSYCHIATRIST, DR TORRES. PATIENT HAS AN APPARENT GROSSLY FUNCATIONAL SWALLOW. PROBLEMS WITH PO INTAKE APPEAR TO BE BEHAVIORAL. PLAN: WILL D/C FROM SKILLED SERVICE AT THIS TIME. CONTINUE WITH CURRENT DIET/LIQUIDS AND WORK WITH DR TORRES AND DIETARY AT THIS TIME.
[2019-05-25] MEDS ORDERED: LORazepam Inj 2mg/ml 1ml IM PRN (15:30)
[2019-05-25 16:00] VITALS: BP 147/85
--- NOTE | 2019-05-25 19:36 | NUR ---
HAND-OFF: Report given to Linda/DEVON Funes.
--- NOTE | 2019-05-25 19:42 | NUR ---
NURSE NOTES: Received patient in bed, awake, alert. Breathing on room air, no acute distress noted. IV site on right forearm is patant and intact. Bed is in low and locked position. Bed alarm is on. Call light in reach. Pt will be monitored.
[2019-05-25 20:00] VITALS: BP 138/71
--- NOTE | 2019-05-25 21:00 | Progress Note ---
DATE: 05/25/2019 SUBJECTIVE: The patient is in bed, asleep, earlier was agitated, yelling, screaming. The patient was started on Lexapro as well as Remeron. Per nurse, the patient is refusing to eat or take medications, noncompliant, easily agitated. MENTAL STATUS EXAMINATION: The patient is asleep and arousable. Mood is agitated. Affect is flat. Thought process is disorganized. Thought content is positive for delusions. Insight and judgment non-existent. Cognition is impaired. ASSESSMENT: Dementia with behavior disturbance. PLAN: 1. We will continue the Remeron and Lexapro. 2. The patient should be given medication against her will as she lacks capacity to make decisions. Cata Roblero M.D. DR: Inderjit JOB#: [id number] CC:
--- NOTE | 2019-05-25 21:00 | NUR ---
NURSE NOTES: Pt refused his medication @2100,despite of education and encouragement.
--- NOTE | 2019-05-25 21:07 | Surgery Progress Note ---
Surgery Progress Note Subjective Symptoms: improved, tolerating diet, passing flatus Objective Last 24 Hour Vital Signs Date Time Temp Pulse Resp B/P (MAP) Pulse Ox O2 Delivery O2 Flow Rate FiO2 05/25/19 16:00 97.9 85 20 147/85 (105) 97 05/25/19 12:00 98.1 86 20 143/80 (101) 98 05/25/19 09:00 Room Air 05/25/19 08:00 98.0 80 20 138/71 (93) 99 05/25/19 04:00 97.9 61 20 144/67 (92) 97 05/25/19 00:00 98.2 80 20 145/89 (107) 98 05/24/19 21:39 Room Air I&O Intake and Output 05/24/19 05/25/19 19:00 07:00 Intake Total 550 ml 100 ml Output Total 300 ml Balance 250 ml 100 ml IV Total 550 ml 100 ml Output Urine Total 300 ml Dressing: dry Wound: clean Cardiovascular: RSR Respiratory: clear Abdomen: non-tender, present bowel sounds Extremities: no edema, no cyanosis Laboratory Tests Test 05/25/19 05:15 White Blood Count 4.2 K/UL (4.8-10.8) L Red Blood Count 4.45 M/UL (4.20-5.40) Hemoglobin 12.3 G/DL (12.0-16.0) Hematocrit 39.8 % (37.0-47.0) Mean Corpuscular Volume 89 FL (80-99) Mean Corpuscular Hemoglobin 27.7 PG (27.0-31.0) Mean Corpuscular Hemoglobin Concent 31.0 G/DL (32.0-36.0) L Red Cell Distribution Width 13.0 % (11.6-14.8) Platelet Count 267 K/UL (150-450) Mean Platelet Volume 9.2 FL (6.5-10.1) Neutrophils (%) (Auto) 38.7 % (45.0-75.0) L Lymphocytes (%) (Auto) 44.0 % (20.0-45.0) Monocytes (%) (Auto) 13.4 % (1.0-10.0) H Eosinophils (%) (Auto) 1.0 % (0.0-3.0) Basophils (%) (Auto) 3.0 % (0.0-2.0) H Erythrocyte Sedimentation Rate 50 MM/HR (0-30) H Prothrombin Time 12.3 SEC (9.30-11.50) H Prothromb Time International Ratio 1.2 (0.9-1.1) H Activated Partial Thromboplast Time 31 SEC (23-33) Sodium Level 142 MMOL/L (136-145) Potassium Level 3.5 MMOL/L (3.5-5.1) Chloride Level 105 MMOL/L (98-107) Carbon Dioxide Level 24 MMOL/L (21-32) Anion Gap 13 mmol/L (5-15) Blood Urea Nitrogen 3 mg/dL (7-18) L Creatinine 0.3 MG/DL (0.55-1.30) L Estimat Glomerular Filtration Rate mL/min (>60) Glucose Level 41 MG/DL (74-106) L Calcium Level 9.3 MG/DL (8.5-10.1) Total Bilirubin 0.8 MG/DL (0.2-1.0) Aspartate Amino Transf (AST/SGOT) 25 U/L (15-37) Alanine Aminotransferase (ALT/SGPT) 13 U/L (12-78) Alkaline Phosphatase 99 U/L (46-116) C-Reactive Protein, Quantitative 0.9 mg/dL (0.00-0.90) Total Protein 7.1 G/DL (6.4-8.2) Albumin 3.2 G/DL (3.4-5.0) L Globulin 3.9 g/dL Albumin/Globulin Ratio 0.8 (1.0-2.7) L Prealbumin Pending Amylase Level 32 U/L (25-115) Lipase 97 U/L (73-393) Plan Problems: (1) Failure to thrive Assessment & Plan: Patient with decreased appetite and ability. No functional organic inability identified. Patient nutritionally deprived and forming wounds as well. Recommend psych eval Considerations for PEG Appreciate GI input (2) Severe protein-calorie malnutrition Assessment & Plan: AILY ESTIMATED NEEDS: Needs based on cardiac, wound/ 52kg 25-30 kcals/kg 9644-1851 total kcals 1.25-1.5 g protein/kg 65-78 g total protein 25-30 mL/kg 9830-0689 total fluid mLs NUTRITION DIAGNOSIS: * Increased kcal/prot intake needs R/T wound healing as evidenced by pt admitted w/ sacral, BL heels, and rt hip wounds per photos, pending eval, admitted w/ FTT dx w/ refusing to eat. CURRENT DIET:REGULAR PO DIET RECOMMENDATIONS: Liberalized REGULAR w/ poor PO + texture per FRICTION PAINT MACHINE TENDER ADDITIONAL RECOMMENDATIONS: * Calibrated bedscale wt for accurate CBW * Add LOW NA to diet w/ PO intake consistently >50% * Ensure Enlive TID w/ meals * Wound healing: Add MVI x 1, Vit C 250mg QD add Edu 1pkt BID * F/up w/ VELMA COUNT x 72 hrs * Monitor lytes, replete as needed (3) Decubital ulcer Assessment & Plan: Pt presented on admission with multiple pressure injuries. R heel is maroon with scattered purple areas . Base of heel is fluctuant. Pt complained of pain when minimally palpated.(L)4.5cm x (W)7cm. L heel maroon with fluctuance. Pt also complained of pain when minimally palpated.(L)4.7cm x (W)5cm. Scattered areas of hyperpigmentation noted to buttocks. Tx.Plan: Apply Cavilon Skin Barrier to R and L heel. Cover each heel with Optifoam drsg.Change every 7 days and prn. Apply Moisture Barrier Paste to buttocks. Cover with Optifoam drsg. Change every 3 days and prn. Reposition at least every 2hours or as tolerated. Off-load heels with pillow. Howard Mcclellan May 25, 2019 21:07
--- NOTE | 2019-05-25 22:00 | NUR ---
NURSE NOTES: Patient is in bed, appears to be resting.Room air, no acute distress noted. IV site on right forearm is patent and intact. Pt refuses po intake and meds. Pt will be encouraged to eat. NS running 50ml/hr. Bed is in low and locked position. Bed alarm is on. Call light in reach. Pt will be monitored. Trainee, Fe FunesRN will be assisting in the care of this patient.
[2019-05-26] VITALS: BP 124/91
--- NOTE | 2019-05-26 01:54 | NUR ---
NURSE NOTES: Pt is in bed, asleep. Pt refused evening meds. IV site on right forearm patent and running NS 50cc/hr. Bed in low and locked position. Call light within reach. Will continue to monitor.
[2019-05-26 04:00] VITALS: BP 124/73
--- NOTE | 2019-05-26 05:46 | NUR ---
NURSE NOTES: Offered and encouraged oral fluid and snacks multiple times, but Pt refused oral intake of fluid, food and medication. Educated Pt about the importance of oral intake, but still Pt refused.
[2019-05-26 07:25] LABS: ANION GAP 15 mmol/L (5-15); BLOOD UREA NITROGEN 4 mg/dL (7-18); CALCIUM 9.7 MG/DL (8.5-10.1); CARBON DIOXIDE 23 MMOL/L (21-32); CHLORIDE 107 MMOL/L (98-107); CREATININE 0.4 MG/DL (0.55-1.30); POTASSIUM 3.1 MMOL/L (3.5-5.1); SODIUM 145 MMOL/L (136-145)
[2019-05-26 07:29] LABS: BASOPHILS % (AUTO) 2.2 % (0.0-2.0); EOSINOPHILS % (AUTO) 1.7 % (0.0-3.0); HEMATOCRIT 38.7 % (37.0-47.0); HEMOGLOBIN 11.9 G/DL (12.0-16.0); LYMPHOCYTES % (AUTO) 43.9 % (20.0-45.0); MEAN CORPUSCULAR VOLUME 90 FL (80-99); MONOCYTES % (AUTO) 13.3 % (1.0-10.0); NEUTROPHILS % (AUTO) 38.9 % (45.0-75.0); PLATELET COUNT 257 K/UL (150-450); RED BLOOD COUNT 4.31 M/UL (4.20-5.40); RED CELL DISTRIBUTION WIDTH 13.2 % (11.6-14.8); WHITE BLOOD COUNT 4.3 K/UL (4.8-10.8)
--- NOTE | 2019-05-26 07:30 | NUR ---
HAND-OFF: Report given to DEVON Zarate
--- NOTE | 2019-05-26 07:30 | NUR ---
HAND-OFF: Report given to DEVON Zarate.Pt is in bed awake. Informed to follow up with MD regarding potassium level of 3.1.
[2019-05-26 08:00] VITALS: BP 130/80
--- NOTE | 2019-05-26 08:04 | NUR ---
NURSE NOTES: received report from DEVON Tejeda and DEVON Miramontes. patient in bed, alert. oriented. verbally responsive. no respiratory distress noted. no c/ o pain. IV on RFA 20 running fluid. encouraged patient to eat by mouth. bed in the lowest position. call light within reach. alarn on. will continue to provide plan of care.
[2019-05-26] MEDS: Ascorbic Acid 500mg tab ORAL SCH (09:00)
[2019-05-26] MEDS: hydroCHLOROthiazide 12.5mg TAB ORAL SCH (09:00)
--- NOTE | 2019-05-26 09:21 | Pulmonology Progress Note ---
Assessment/Plan Assessment/Plan IMPRESSION: 1. Anorexia. 2. Failure to thrive. 3. Azotemia. 4. Decreased vision in left eye. 5. Heel decubitus DISCUSSION: She may benefit from enteral feeding unless she is able to consume a reasonable amount of calories. Seen by psych and GI Seen by forest fire prevention specialist and surgery Will monitor replace K Aaron Gonzalez M.D. Subjective Interval Events: K 3.1; still has very poor PO intake Constitutional: Reports: no symptoms HEENT: Repors: no symptoms Respiratory: Reports: no symptoms Cardiovascular: Reports: no symptoms Gastrointestinal/Abdominal: Reports: no symptoms Allergies: Coded Allergies: No Known Allergies (Unverified , 05/22/19) Objective Last 24 Hour Vital Signs Date Time Temp Pulse Resp B/P (MAP) Pulse Ox O2 Delivery O2 Flow Rate FiO2 05/26/19 08:00 97.7 86 20 130/80 (97) 97 05/26/19 04:00 98.2 84 20 124/73 (90) 99 05/26/19 00:00 97.6 87 20 124/91 (102) 98 05/25/19 21:00 Room Air 05/25/19 20:00 98.0 80 20 138/71 (93) 99 05/25/19 16:00 97.9 85 20 147/85 (105) 97 05/25/19 12:00 98.1 86 20 143/80 (101) 98 Intake and Output 05/25/19 05/26/19 18:59 06:59 Intake Total 600 ml 600 ml Balance 600 ml 600 ml IV Total 600 ml 600 ml # Voids 2 General Appearance: no acute distress HEENT: normocephalic Respiratory/Chest: chest wall non-tender, lungs clear Cardiovascular: normal peripheral pulses, normal rate Abdomen: normal bowel sounds Laboratory Tests 05/26/19 05:55: White Blood Count 4.3L, Red Blood Count 4.31, Hemoglobin 11.9L, Hematocrit 38.7 , Mean Corpuscular Volume 90, Mean Corpuscular Hemoglobin 27.7, Mean Corpuscular Hemoglobin Concent 30.9L, Red Cell Distribution Width 13.2, Platelet Count 257, Mean Platelet Volume 9.2, Neutrophils (%) (Auto) 38.9L, Lymphocytes (%) (Auto) 43.9, Monocytes (%) (Auto) 13.3H, Eosinophils (%) (Auto) 1.7, Basophils (%) (Auto) 2.2H, Sodium Level 145, Potassium Level 3.1L, Chloride Level 107, Carbon Dioxide Level 23, Anion Gap 15, Blood Urea Nitrogen 4L, Creatinine 0.4L, Estimat Glomerular Filtration Rate , Glucose Level 44L, Calcium Level 9.7 Current Medications Medications (Trade) Dose Ordered Sig/Sky Route PRN Reason Start Time Stop Time Status Last Admin Dose Admin Ascorbic Acid (Vitamin C) 500 mg DAILY ORAL 05/24/19 09:00 06/23/19 08:59 Escitalopram Oxalate (Lexapro) 10 mg DAILY ORAL 05/24/19 09:00 06/23/19 08:59 Hydrochlorothiazide (Hydrodiuril) 12.5 mg DAILY ORAL 05/24/19 09:00 06/23/19 08:59 Lorazepam (Ativan 2mg/ml 1ml) 1 mg Q4H PRN IM For Anxiety 05/25/19 15:30 06/01/19 15:29 Mirtazapine (Remeron) 15 mg BEDTIME ORAL 05/25/19 21:00 06/24/19 20:59 Sodium Chloride 1,000 ml @ 50 mls/hr Q20H IV 05/23/19 01:15 06/22/19 01:14 05/25/19 12:30 Aaron Gonzalez MD May 26, 2019 09:21
--- NOTE | 2019-05-26 09:22 | NUR ---
HAND-OFF: Report given to Nikhil/Fe.
--- NOTE | 2019-05-26 10:30 | NUR ---
NURSE NOTES: Patient refused all oral medication and food after offering multiple times. Explained risks and benefits. Patient ignored RN.
--- NOTE | 2019-05-26 10:40 | NUR ---
NURSE NOTES: patient refused to take PO potassium. k 3.1 this morning. Glucose 47. notified NO aiden received stat order of Dextrose 50 IV and administered. patient alert. verbally responsive. non symptomatic. ENERGY CONSERVATION SPECIALIST aiden will put new IV fluid order for the patient.
--- NOTE | 2019-05-26 11:00 | NUR ---
NURSE NOTES: Rechecked blood sugar 118 at this time. patient alert. verbally responsive.
--- NOTE | 2019-05-26 11:20 | GI Progress Note ---
Assessment/Plan Problems: (1) Decubital ulcer ICD Codes: L89.90 - Pressure ulcer of unspecified site, unspecified stage SNOMED: 907747331 (2) Severe protein-calorie malnutrition ICD Codes: E43 - Unspecified severe protein-calorie malnutrition SNOMED: 873115942, 258806596, 931076469 (3) Hypoglycemia ICD Codes: E16.2 - Hypoglycemia, unspecified SNOMED: 627597597 (4) Failure to thrive SNOMED: 55462571 Qualifiers: Qualified Codes: R62.7 - Adult failure to thrive Status: not improved, unchanged Status Narrative Discussed with Dr. Montenegro. Assessment/Plan patient refusing to eat, episode of hypoglycemia recommend for PEG placement, will schedule for tomorrow. Family has agreed. calorie count ST eval follow up psych eval, dementia The patient was seen and examined at bedside and all new and available data was reviewed in the patients chart. I agree with the above findings, impression and plan. (Patient seen earlier today. Signature stamp does not reflect patient encounter time.). - Dagoberto Montenegro MD Subjective Gastrointestinal/Abdominal: Reports: no symptoms Subjective limited Objective Last 24 Hour Vital Signs Date Time Temp Pulse Resp B/P (MAP) Pulse Ox O2 Delivery O2 Flow Rate FiO2 05/26/19 09:00 Room Air 05/26/19 08:00 97.7 86 20 130/80 (97) 97 05/26/19 04:00 98.2 84 20 124/73 (90) 99 05/26/19 00:00 97.6 87 20 124/91 (102) 98 05/25/19 21:00 Room Air 05/25/19 20:00 98.0 80 20 138/71 (93) 99 05/25/19 16:00 97.9 85 20 147/85 (105) 97 05/25/19 12:00 98.1 86 20 143/80 (101) 98 Intake and Output 05/25/19 05/26/19 19:00 07:00 Intake Total 550 ml 600 ml Balance 550 ml 600 ml IV Total 550 ml 600 ml # Voids 2 Laboratory Tests Test 05/26/19 05:55 White Blood Count 4.3 K/UL (4.8-10.8) L Red Blood Count 4.31 M/UL (4.20-5.40) Hemoglobin 11.9 G/DL (12.0-16.0) L Hematocrit 38.7 % (37.0-47.0) Mean Corpuscular Volume 90 FL (80-99) Mean Corpuscular Hemoglobin 27.7 PG (27.0-31.0) Mean Corpuscular Hemoglobin Concent 30.9 G/DL (32.0-36.0) L Red Cell Distribution Width 13.2 % (11.6-14.8) Platelet Count 257 K/UL (150-450) Mean Platelet Volume 9.2 FL (6.5-10.1) Neutrophils (%) (Auto) 38.9 % (45.0-75.0) L Lymphocytes (%) (Auto) 43.9 % (20.0-45.0) Monocytes (%) (Auto) 13.3 % (1.0-10.0) H Eosinophils (%) (Auto) 1.7 % (0.0-3.0) Basophils (%) (Auto) 2.2 % (0.0-2.0) H Sodium Level 145 MMOL/L (136-145) Potassium Level 3.1 MMOL/L (3.5-5.1) L Chloride Level 107 MMOL/L (98-107) Carbon Dioxide Level 23 MMOL/L (21-32) Anion Gap 15 mmol/L (5-15) Blood Urea Nitrogen 4 mg/dL (7-18) L Creatinine 0.4 MG/DL (0.55-1.30) L Estimat Glomerular Filtration Rate mL/min (>60) Glucose Level 44 MG/DL (74-106) L Calcium Level 9.7 MG/DL (8.5-10.1) Height (Feet): 5 Height (Inches): 1.00 Weight (Pounds): 114 General Appearance: no apparent distress Cardiovascular: normal rate Respiratory/Chest: normal breath sounds, no respiratory distress Abdominal Exam: soft Jessica Nichole NP May 26, 2019 11:20
--- NOTE | 2019-05-26 11:40 | NUR ---
NURSE NOTES: called daughter for consent. left message to call back.
[2019-05-26 12:00] VITALS: BP 139/80
[2019-05-26] MEDS: D5 1/2NS w/KCl 20mEq 1,000 ML IV SCH (12:31)
--- NOTE | 2019-05-26 13:08 | NUR ---
RD ASSESSMENT & RECOMMENDATIONS SEE CARE ACTIVITY FOR COMPLETE ASSESSMENT DAILY ESTIMATED NEEDS: Needs based on cardiac, wound/ 52kg 25-30 kcals/kg 3735-3369 total kcals 1.25-1.5 g protein/kg 65-78 g total protein 25-30 mL/kg 6884-6614 total fluid mLs NUTRITION DIAGNOSIS: * Increased kcal/prot intake needs R/T wound healing as evidenced by pt admitted w/ sacral, BL heels, and rt hip wounds per photos, pending eval, admitted w/ FTT dx w/ refusing to eat, pending PEG. CURRENT DIET:REGULAR PO DIET RECOMMENDATIONS: Liberalized REGULAR w/ poor PO + texture per PILOT PLANT TECHNICIAN ENTERAL NUTRITION RECOMMENDATIONS: Jevity 1.2 @50ml/hr x24 hrs to provide 1200ml, 1440 kcal, 67g pro, 968ml free H2O - As medically able, rec start Jevity 1.2 @20ml/hr for 6 hrs. Advance as tolerated 10ml/hr q4-6 hrs to goal. - Flush per MD/ HOB over 30 degrees ADDITIONAL RECOMMENDATIONS: * Calibrated bedscale wt for accurate CBW * Add LOW NA to diet w/ PO intake consistently >50% * Monitor lytes, BG on TF * Wound healing: Add MVI x 1, Vit C 250mg QD add Edu 1pkt BID * F/up w/ VELMA COUNT x 72 hrs-> POOR PO INTAKE * Monitor lytes, replete as needed
--- NOTE | 2019-05-26 15:00 | NUR ---
NURSE NOTES: RN called the daughter and left message to call back to nursing station for consent.
--- NOTE | 2019-05-26 15:03 | Surgery Progress Note ---
Surgery Progress Note Subjective Additional Comments No acute events. Labs noted. Exam stable. Overall comfortable. Objective Last 24 Hour Vital Signs Date Time Temp Pulse Resp B/P (MAP) Pulse Ox O2 Delivery O2 Flow Rate FiO2 05/26/19 12:00 97.7 98 20 139/80 (99) 98 05/26/19 09:00 Room Air 05/26/19 08:00 97.7 86 20 130/80 (97) 97 05/26/19 04:00 98.2 84 20 124/73 (90) 99 05/26/19 00:00 97.6 87 20 124/91 (102) 98 05/25/19 21:00 Room Air 05/25/19 20:00 98.0 80 20 138/71 (93) 99 05/25/19 16:00 97.9 85 20 147/85 (105) 97 I&O Intake and Output 05/25/19 05/26/19 19:00 07:00 Intake Total 550 ml 600 ml Balance 550 ml 600 ml IV Total 550 ml 600 ml # Voids 2 Dressing: dry Wound: clean Cardiovascular: RSR Respiratory: clear Abdomen: soft, non-tender, present bowel sounds Extremities: no edema, no tenderness Laboratory Tests Test 05/26/19 05:55 White Blood Count 4.3 K/UL (4.8-10.8) L Red Blood Count 4.31 M/UL (4.20-5.40) Hemoglobin 11.9 G/DL (12.0-16.0) L Hematocrit 38.7 % (37.0-47.0) Mean Corpuscular Volume 90 FL (80-99) Mean Corpuscular Hemoglobin 27.7 PG (27.0-31.0) Mean Corpuscular Hemoglobin Concent 30.9 G/DL (32.0-36.0) L Red Cell Distribution Width 13.2 % (11.6-14.8) Platelet Count 257 K/UL (150-450) Mean Platelet Volume 9.2 FL (6.5-10.1) Neutrophils (%) (Auto) 38.9 % (45.0-75.0) L Lymphocytes (%) (Auto) 43.9 % (20.0-45.0) Monocytes (%) (Auto) 13.3 % (1.0-10.0) H Eosinophils (%) (Auto) 1.7 % (0.0-3.0) Basophils (%) (Auto) 2.2 % (0.0-2.0) H Sodium Level 145 MMOL/L (136-145) Potassium Level 3.1 MMOL/L (3.5-5.1) L Chloride Level 107 MMOL/L (98-107) Carbon Dioxide Level 23 MMOL/L (21-32) Anion Gap 15 mmol/L (5-15) Blood Urea Nitrogen 4 mg/dL (7-18) L Creatinine 0.4 MG/DL (0.55-1.30) L Estimat Glomerular Filtration Rate mL/min (>60) Glucose Level 44 MG/DL (74-106) L Calcium Level 9.7 MG/DL (8.5-10.1) Plan Problems: (1) Failure to thrive Assessment & Plan: Patient with decreased appetite and ability. No functional organic inability identified. Patient nutritionally deprived and forming wounds as well. Recommend psych eval Considerations for PEG Appreciate GI input (2) Severe protein-calorie malnutrition Assessment & Plan: AILY ESTIMATED NEEDS: Needs based on cardiac, wound/ 52kg 25-30 kcals/kg 7949-5313 total kcals 1.25-1.5 g protein/kg 65-78 g total protein 25-30 mL/kg 8612-7864 total fluid mLs NUTRITION DIAGNOSIS: * Increased kcal/prot intake needs R/T wound healing as evidenced by pt admitted w/ sacral, BL heels, and rt hip wounds per photos, pending eval, admitted w/ FTT dx w/ refusing to eat. CURRENT DIET:REGULAR PO DIET RECOMMENDATIONS: Liberalized REGULAR w/ poor PO + texture per PHYSICAL EDUCATION AIDE ADDITIONAL RECOMMENDATIONS: * Calibrated bedscale wt for accurate CBW * Add LOW NA to diet w/ PO intake consistently >50% * Ensure Enlive TID w/ meals * Wound healing: Add MVI x 1, Vit C 250mg QD add Edu 1pkt BID * F/up w/ VELMA COUNT x 72 hrs * Monitor lytes, replete as needed (3) Decubital ulcer Assessment & Plan: Pt presented on admission with multiple pressure injuries. R heel is maroon with scattered purple areas . Base of heel is fluctuant. Pt complained of pain when minimally palpated.(L)4.5cm x (W)7cm. L heel maroon with fluctuance. Pt also complained of pain when minimally palpated.(L)4.7cm x (W)5cm. Scattered areas of hyperpigmentation noted to buttocks. Tx.Plan: Apply Cavilon Skin Barrier to R and L heel. Cover each heel with Optifoam drsg.Change every 7 days and prn. Apply Moisture Barrier Paste to buttocks. Cover with Optifoam drsg. Change every 3 days and prn. Reposition at least every 2hours or as tolerated. Off-load heels with pillow. Howard Mcclellan May 26, 2019 15:03
--- NOTE | 2019-05-26 15:30 | NUR ---
NURSE NOTES: Warm compress placed on patient's right arm. Patient does not complain of pain on the IV site despite of swelling noted. Dr Roblero informed of patient's refusal of care, RN suggested IV route for ativan, awaiting any new orders. RN tried to convince patient to have IV line reinserted but patient still refused.
--- NOTE | 2019-05-26 15:42 | NUR ---
CASE MANAGEMENT:REVIEW 05/26/19 SI: ANOREXIA. FTT. HEEL DECUBITUS 97.7 98 20 139/80 98% ON RA WBC-3.1 GLUCOSE-44 IS: IV ANCEF WHEEL INSTALLER IVF@75/HR REMERON PO QHS HCTZ PO QD LEXAPRO PO QD : MED/SURG STATUS 4 EAST PLAN: PEG SCHEDULED FOR TOMORROW
[2019-05-26 16:00] VITALS: BP 156/95
--- NOTE | 2019-05-26 18:06 | NUR ---
NURSE NOTES: patient is agitated. refusing nursing care. only getting IV hydration. notified Osbaldo Aguila to switch Ativan IM PRN to IVP for agitation. waiting for further order.
--- NOTE | 2019-05-26 19:19 | NUR ---
NURSE NOTES: received order from Dr. Roblero. Switch Ativan IM to IVP PRN for anxiety. order noted and carried out.
--- NOTE | 2019-05-26 19:20 | NUR ---
NURSE NOTES: Received patient in bed, awake, alert. Breathing on room air, no acute distress noted. IV site on right forearm is patent and intact. Bed is in low and locked position. Bed alarm is on. Call light in reach. Pt will be monitored.
--- NOTE | 2019-05-26 19:20 | NUR ---
NURSE NOTES: Received patient in bed, awake, alert. Breathing on room air, no acute distress noted. Bed is in low and locked position. Bed alarm is on. Call light in reach. Pt will be monitored.
[2019-05-26 20:00] VITALS: BP 157/100
--- NOTE | 2019-05-26 21:06 | NUR ---
NURSE NOTES: RN called the daughter Marcus Manning To [phone] and left message to call back to nursing station for get consent for PEG placement. Awaiting for call back.
--- NOTE | 2019-05-26 21:13 | Cardiology Report ---
APPROVED REPORT EKG Measurement Heart [id number] VT [id number] Normal sinus rhythm Possible Left atrial enlargement Left ventricular hypertrophy Abnormal QRS-T angle, consider primary T wave abnormality Prolonged QT Abnormal ECG
--- NOTE | 2019-05-26 21:30 | NUR ---
NURSE NOTES: Pt refused food and evening medication despite of education and encouragement.
--- NOTE | 2019-05-26 21:35 | NUR ---
NURSE NOTES: Patient in bed, awake, alert. Breathing on room air, no acute distress noted. IV site on right forearm is patent and intact. Pt refused to have IV site changed to another location. Pt refused PO intake and Meds despite multiple attempts. Bed is in low and locked position. Bed alarm is on. Call light in reach. Pt will be monitored. Trainee Fe Funes RN will be assisting with the patient care.
[2019-05-26] MEDS: LORazepam Inj 2mg/ml 1ml IVP PRN (22:33)
[2019-05-27] VITALS (12 sets, daily range): BP systolic 143–178; BP diastolic 75–100
--- NOTE | 2019-05-27 01:30 | NUR ---
NURSE NOTES: Pt is in bed, asleep. Pt refused evening meds and oral intake. IV site on right forearm patent and running D5 1/2NS kcl 20 Meq running @75cc/hr.Pt had episode of agitation and PRN IV ativan 1mg given as ordered. Bed in low and locked position. Call light within reach. Will continue to monitor.
[2019-05-27] MEDS: D5 1/2NS w/KCl 20mEq 1,000 ML IV SCH ×2 (02:52→14:40)
--- NOTE | 2019-05-27 05:00 | Progress Note ---
DATE: 05/26/2019 SUBJECTIVE: The patient continues to not eat. Continues to have anxiety. Refusing care. She is agitated. Poor insight. Poor appetite. MENTAL STATUS EXAMINATION: The patient is alert and oriented to self and place. Mood is anxious. Affect is flat. Thought process, there is a paucity of thought content. Thought content, no suicidal or homicidal ideation. Noncompliance. The patient is refusing all psychotropic medication. Has not been taking Remeron. The patient lacks capacity to make decision, may now refuse care. PLAN: Continue to encourage her to take medication and eat food. I suggested to have family assist with administering medication and food. Daughter is the decision maker who states the patient may need G-tube placement. Cata Roblero M.D. DR: DEVON JOB#: [id number] CC: CHERYL
--- NOTE | 2019-05-27 06:45 | NUR ---
NURSE NOTES: Pt is in bed, asleep. NO acute distress noted. HOB elevated. Blood sugar 118. PT is NPO for possible PEG placement today. Pt's daughter never called back for consent for G-tube placement, awaiting call back.
--- NOTE | 2019-05-27 07:01 | Pulmonology Progress Note ---
Assessment/Plan Assessment/Plan IMPRESSION: 1. Anorexia. 2. Failure to thrive. 3. Azotemia. 4. Decreased vision in left eye. 5. Heel decubitus DISCUSSION: She may benefit from enteral feeding unless she is able to consume a reasonable amount of calories. Seen by psych and GI Seen by it communications specialist and surgery Will monitor PEG after consent Aaron Gonzalez M.D. Subjective Interval Events: Minimal PO intake Constitutional: Reports: no symptoms HEENT: Repors: no symptoms Respiratory: Reports: no symptoms Cardiovascular: Reports: no symptoms Gastrointestinal/Abdominal: Reports: no symptoms Genitourinary: Reports: no symptoms Allergies: Coded Allergies: No Known Allergies (Unverified , 05/22/19) Objective Last 24 Hour Vital Signs Date Time Temp Pulse Resp B/P (MAP) Pulse Ox O2 Delivery O2 Flow Rate FiO2 05/27/19 04:00 98.1 81 18 147/79 (101) 98 05/27/19 00:00 98.2 82 20 147/78 (101) 97 05/26/19 21:00 Room Air 05/26/19 20:00 97.9 94 20 157/100 (119) 97 05/26/19 16:00 97.3 88 19 156/95 (115) 98 05/26/19 12:00 97.7 98 20 139/80 (99) 98 05/26/19 09:00 Room Air 05/26/19 08:00 97.7 86 20 130/80 (97) 97 Intake and Output 05/26/19 05/27/19 18:59 06:59 Intake Total 225 ml 600 ml Balance 225 ml 600 ml IV Total 225 ml 600 ml # Voids 3 2 General Appearance: no acute distress HEENT: normocephalic Respiratory/Chest: chest wall non-tender, lungs clear Cardiovascular: normal peripheral pulses Abdomen: normal bowel sounds Laboratory Tests 05/27/19 06:45: White Blood Count [Pending], Red Blood Count [Pending], Hemoglobin [Pending], Hematocrit [Pending], Mean Corpuscular Volume [Pending], Mean Corpuscular Hemoglobin [Pending], Mean Corpuscular Hemoglobin Concent [Pending], Red Cell Distribution Width [Pending], Platelet Count [Pending], Mean Platelet Volume [ Pending], Neutrophils (%) (Auto) [Pending], Lymphocytes (%) (Auto) [Pending], Monocytes (%) (Auto) [Pending], Eosinophils (%) (Auto) [Pending], Basophils (%) (Auto) [Pending], Prothrombin Time [Pending], Prothromb Time International Ratio [Pending], Activated Partial Thromboplast Time [Pending], Sodium Level [ Pending], Potassium Level [Pending], Chloride Level [Pending], Carbon Dioxide Level [Pending], Blood Urea Nitrogen [Pending], Creatinine [Pending], Estimat Glomerular Filtration Rate [Pending], Glucose Level [Pending], Calcium Level [ Pending] Current Medications Medications (Trade) Dose Ordered Sig/Sky Route PRN Reason Start Time Stop Time Status Last Admin Dose Admin Ascorbic Acid (Vitamin C) 500 mg DAILY ORAL 05/24/19 09:00 06/23/19 08:59 Cefoxitin Sodium 1 gm/Dextrose 55 ml @ 110 mls/hr ONCE PRN IV MICROBIOLOGY SOIL SCIENTIST TO GI LAB 05/27/19 08:00 05/27/19 15:00 Dextrose (Dextrose 50%) 25 ml Q30M PRN IV Hypoglycemia 05/26/19 10:45 06/25/19 10:44 Dextrose (Dextrose 50%) 50 ml Q30M PRN IV Hypoglycemia 05/26/19 10:45 06/25/19 10:44 05/26/19 10:46 Dextrose/ Electrolytes 1,000 ml @ 75 mls/hr [id number] IV 05/26/19 12:00 06/25/19 11:59 05/27/19 02:52 Escitalopram Oxalate (Lexapro) 10 mg DAILY ORAL 05/24/19 09:00 06/23/19 08:59 Hydrochlorothiazide (Hydrodiuril) 12.5 mg DAILY ORAL 05/24/19 09:00 06/23/19 08:59 Lorazepam (Ativan 2mg/ml 1ml) 1 mg Q4H PRN IVP For Anxiety 05/26/19 19:30 06/01/19 15:29 05/26/19 22:33 Mirtazapine (Remeron) 15 mg BEDTIME ORAL 05/25/19 21:00 06/24/19 20:59 Aaron Gonzalez MD May 27, 2019 07:01
[2019-05-27 07:20] LABS: HEMATOCRIT 39.8 % (37.0-47.0); HEMOGLOBIN 12.3 G/DL (12.0-16.0); MEAN CORPUSCULAR VOLUME 89 FL (80-99); PLATELET COUNT 252 K/UL (150-450); RED BLOOD COUNT 4.48 M/UL (4.20-5.40); RED CELL DISTRIBUTION WIDTH 13.2 % (11.6-14.8); WHITE BLOOD COUNT 3.4 K/UL (4.8-10.8)
--- NOTE | 2019-05-27 07:25 | NUR ---
HAND-OFF: Report given to DEVON Scott.Informed Oscaron to have consent signed by daughter who is by bedside now. Also informed to follow up with the doctor regarding potassium level of 2.9.
[2019-05-27 07:30] LABS: ANION GAP 8 mmol/L (5-15); BLOOD UREA NITROGEN 2 mg/dL (7-18); CALCIUM 9.4 MG/DL (8.5-10.1); CARBON DIOXIDE 28 MMOL/L (21-32); CHLORIDE 106 MMOL/L (98-107); CREATININE 0.4 MG/DL (0.55-1.30); POTASSIUM 2.9 MMOL/L (3.5-5.1); SODIUM 142 MMOL/L (136-145)
--- NOTE | 2019-05-27 07:30 | NUR ---
NURSE NOTES: Received pt from MASOOD RN. Pt is confused and orient x. pt is in RA, No SOB or acute respiratory distress noted. pt has intact iv access RFA 22G is running well. Pt is NPO due to EGD and PEG. Pt's daughter TATIANA FARAH is on bed side and signed consent form. Called Dr KING for K 2.9 waiting to call back. all needs attended, bed is locked and is in the lowest position, call light within easy reach. will continue to monitor.
[2019-05-27 07:56] LABS: INR 1.1 (0.9-1.1)
[2019-05-27] MEDS ORDERED: cefOXitin Sod 1 GM in D5W 55 ML IV PRN (08:00)
[2019-05-27] MEDS: Ascorbic Acid 500mg tab ORAL SCH (09:00)
[2019-05-27] MEDS: hydroCHLOROthiazide 12.5mg TAB ORAL SCH (09:00)
--- NOTE | 2019-05-27 10:47 | NUR ---
NURSE NOTES: PT IS STABLE, LEFT UNIT FOR GI LAB. WAITING TO COME BACK.
[2019-05-27] MEDS ORDERED: Propofol 200mg/20ml IV ONE (11:00)
--- NOTE | 2019-05-27 11:00 | Anethesia Preoperative Eval ---
Anesthesia Pre-op PMH/ROS General Date of Evaluation: May 27, 2019 Time of Evaluation: 10:45 Anesthesiologist: Nicki Guevara CRNA ASA Score: ASA 3 Mallampati Score Class I : Soft palate, uvula, fauces, pillars visible Class II: Soft palate, uvula, fauces visible Class III: Soft palate, base of uvula visible Class IV: Only hard plate visible Mallampati Classification: Class II Surgeon: Lan Diagnosis: FTT Surgical Procedure: PEG insertion Family History: no anesthesia problems Allergies: Coded Allergies: No Known Allergies (Unverified , 05/22/19) Medications: see eMAR Patient NPO?: Yes NPO Date: May 27, 2019 NPO Time: 00:00 Past Medical History Cardiovascular: Reports: HTN, CAD; Denies: HI, valve dz, arrhythmia, other Pulmonary: Denies: asthma, COPD, INESSA, other Gastrointestinal/Genitourinary: Reports: other - FTT, malnutrition, hypokalemia ; Denies: GERD, CRI, ESRD Neurologic/Psychiatric: Reports: dementia, CVA; Denies: depression/anxiety, TIA, other Endocrine: Denies: DM, hypothyroidism, steroids, other HEENT: Denies: cataract (L), cataract (R), glaucoma, [place] (L), [place] (R), other Hematology/Immune: Denies: anemia, DVT, bleeding disorder, other Musculoskeletal/Integumentary: Denies: OA, RA, DJD, DDD, edema, other PMH Narrative: as noted above PSxH Narrative: see H & P Anesthesia Pre-op Phys. Exam Physician Exam Last Vital Signs Date Time Temp Pulse Resp B/P (MAP) Pulse Ox O2 Delivery O2 Flow Rate FiO2 05/27/19 08:00 97.5 82 20 143/76 (98) 98 05/26/19 21:00 Room Air Constitutional: NAD Neurologic: other - obtunded Cardiovascular: RRR Respiratory: CTA Gastrointestinal: S/NT/ND Airway Exam Mallampati Score: Class II MO: full Neck: FROM TMD: > 3 FB ROM: full Teeth: intact Dentures: no upper, no lower Anesthesia Pre-op A/P Labs Hematology Test 05/27/19 06:45 White Blood Count 3.4 K/UL (4.8-10.8) L Red Blood Count 4.48 M/UL (4.20-5.40) Hemoglobin 12.3 G/DL (12.0-16.0) Hematocrit 39.8 % (37.0-47.0) Mean Corpuscular Volume 89 FL (80-99) Mean Corpuscular Hemoglobin 27.5 PG (27.0-31.0) Mean Corpuscular Hemoglobin Concent 31.0 G/DL (32.0-36.0) L Red Cell Distribution Width 13.2 % (11.6-14.8) Platelet Count 252 K/UL (150-450) Mean Platelet Volume 9.6 FL (6.5-10.1) Neutrophils (%) (Auto) % (45.0-75.0) Lymphocytes (%) (Auto) % (20.0-45.0) Monocytes (%) (Auto) % (1.0-10.0) Eosinophils (%) (Auto) % (0.0-3.0) Basophils (%) (Auto) % (0.0-2.0) Differential Total Cells Counted 100 Neutrophils % (Manual) 51 % (45-75) Lymphocytes % (Manual) 33 % (20-45) Monocytes % (Manual) 14 % (1-10) H Eosinophils % (Manual) 2 % (0-3) Basophils % (Manual) 0 % (0-2) Band Neutrophils 0 % (0-8) Platelet Estimate Adequate Platelet Morphology Normal Red Blood Cell Morphology Normal Coagulation Test 05/27/19 06:45 Prothrombin Time 12.0 SEC (9.30-11.50) H Prothromb Time International Ratio 1.1 (0.9-1.1) Activated Partial Thromboplast Time 32 SEC (23-33) Chemistry Test 05/27/19 06:45 Sodium Level 142 MMOL/L (136-145) Potassium Level 2.9 MMOL/L (3.5-5.1) L Chloride Level 106 MMOL/L (98-107) Carbon Dioxide Level 28 MMOL/L (21-32) Anion Gap 8 mmol/L (5-15) Blood Urea Nitrogen 2 mg/dL (7-18) L Creatinine 0.4 MG/DL (0.55-1.30) L Estimat Glomerular Filtration Rate mL/min (>60) Glucose Level 118 MG/DL (74-106) H Calcium Level 9.4 MG/DL (8.5-10.1) Studies Pre-op Studies: EKG - NSR; LVH, CXR - no acute CPD Risk Assessment & Plan Assessment: ASA 3, ok to proceed Plan: MAC Status Change Before Surgery: No Pre-Antibiotics Given Within 1 Hr of Incision: Nicki Love CRNA May 27, 2019 11:00
--- NOTE | 2019-05-27 11:04 | Pre-Procedure Note/Attestation ---
Pre-Procedure Note/Attestation Complete Prior to Procedure Planned Procedure: not applicable Procedure Narrative: egd/peg Indications for Procedure Pre-Operative Diagnosis: dysphagia Attestation I attest that I discussed the nature of the procedure; its benefits; risks and complications; and alternatives (and the risks and benefits of such alternatives ), prior to the procedure, with the patient (or the patient's legal indirect sales representative). I attest that, if there was a reasonable possibility of needing a blood transfusion, the patient (or the patient's legal indirect sales representative) was given the [facility] standardized written summary, pursuant to the Sharif Bhumi Blood Safety Act ([place] Health and Safety Code # 1645, as amended). I attest that I re-evaluated the patient just prior to the surgery and that there has been no change in the patient's H&P, except as documented below: Dagoberto Montenegro MD May 27, 2019 11:04
--- NOTE | 2019-05-27 11:30 | Endoscopy Procedure Note ---
Endoscopy Procedure Note General Indication for Procedure: dysphagia Procedures Performed: EGD Operative Findings/Diagnosis: gastritis Specimen: none Pt Tolerated Procedure Well: Yes Estimated Blood Loss: none Anesthesia Anesthesiologist: breonna Anesthesia: MAC Inserted Devices Implant(s) used?: No GI Core Measures 50 yrs or older w/o bx or poly: Not Applicable 10yrs. F/U recommended: Not Applicable Dagoberto Montenegro MD May 27, 2019 11:30
--- NOTE | 2019-05-27 11:50 | Immediate Post-Op Evaluation ---
Immediate Post-Op Evalulation Immediate Post-Op Evalulation Procedure: PEG insertion Date of Evaluation: May 27, 2019 Time of Evaluation: 11:45 IV Fluids: n/a Blood Pressure Systolic: 155 Blood Pressure Diastolic: 92 Pulse Rate: 82 Respiratory Rate: 20 O2 Sat by Pulse Oximetry: 100 Temperature (Fahrenheit): 97.8 Pain Score (1-10): 0 Nausea: No Vomiting: No Complications none Patient Status: reacts, patent Drug: cefoxitin 1 gm IV Given Within 1 Hr of Incision: Yes Time Given: 11:20 Nicki Guevara CRNA May 27, 2019 11:50
--- NOTE | 2019-05-27 12:45 | NUR ---
NURSE NOTES: pt backed from GI lab, pt is stable, pt has g tube in place, dressing is intact, pt has new iv access LFA 22G is running well. all needs attended, bed is locked and is in the lowest position, call light within easy reach. will continue to monitor.will continue to monitor.
--- NOTE | 2019-05-27 13:19 | 48 Hour Post Anesthesia Eval ---
Post Anesthesia Evaluation Procedure: PEG insertion Date of Evaluation: May 27, 2019 Time of Evaluation: 13:17 Blood Pressure Systolic: 151 0: 85 Pulse Rate: 80 Respiratory Rate: 22 Temperature (Fahrenheit): 97.3 O2 Sat by Pulse Oximetry: 99 Airway: patent Nausea: No Vomiting: No Pain Intensity: 0 Hydration Status: adequate Cardiopulmonary Status: stable Mental Status/LOC: patient returned to baseline Follow-up Care/Observations: per hospitalist Post-Anesthesia Complications: none Follow-up care needed: N/A Nicki Guevara CRNA May 27, 2019 13:19
--- NOTE | 2019-05-27 13:55 | NUR ---
CASE MANAGEMENT:REVIEW 05/27/19 SI: ANOREXIA. FTT. HEEL DECUBITUS S/P PEG PLACEMENT YESTERDAY 97.3 80 22 151/85 100% ON 3L/NC K-2.9 IS: IV KCL Q1HR X4 BAGS IVF@75/HR : MED/SURG STATUS 4 EAST DCP; FROM HOME PLAN: START GT FEEDS PER [employer] PLANT PROTECTION OFFICER PATIENT DOESN'T HAVE ANY SNF DAYS AVAILABLE UPON DISCHARGE SHE WILL HAVE TO RETURN HOME
--- NOTE | 2019-05-27 14:01 | NUR ---
DISCHARGE PLANNING PER JAN[employer] SEA SHELL GATHERER PATIENT DOESN'T HAVE ANY SNF DAYS AVAILABLE UPON DISCHARGE PATIENT WILL HAVE TO RETURN HOME *FEEDINGS SHOULD BE CONVERTED TO BOLUS FEEDS FOR HOME
--- NOTE | 2019-05-27 16:30 | Procedure Note ---
DATE OF PROCEDURE: 05/27/2019 SURGEON: Dagoberto Montenegro M.D. PROCEDURE: Upper endoscopy with PEG tube. ANESTHESIA: Per Nicki RUSSELL. INSTRUMENT: Olympus adult flexible upper endoscope. INDICATION: 1. Dysphagia. 2. Failure to thrive. REASON FOR PROCEDURE: The procedure, risks, benefits, and possible consequences, including hemorrhage, aspiration, perforation and infection, and alternative treatments, were explained to the patient/legal guardian by Dr. Dagoberto Montenegro and the patient/legal guardian understood and accepted these risks. PROCEDURE IN DETAIL: After informed consent was obtained and the patient was adequately sedated, Olympus upper endoscope was advanced from the mouth into the second portion of the duodenum and retroflexion was performed in the stomach. The patient is having some atrophic gastritis. There was some old G-tube site seen in the left upper quadrant and gastric body. Then, under endoscopic guidance, under sterile condition, a 20-Indonesian pull-type of G-tube was successfully placed in the epigastric area. The distance from the tip of the tube to skin was about 2.5 cm in size. The patient tolerated the procedure very well without any complication. SUMMARY OF FINDINGS: 1. Atrophic gastritis. 2. Status post successful PEG placement. RECOMMENDATIONS: 1. Abdominal binder. 2. Elevate the head of the bed at all times. 3. G-tube flush. 4. G-tube care. 5. Start tube feeding later today. The patient received a dose of antibiotics prior to this procedure. I want to thank, Dr. Gonzalez, for this kind referral. Dagoberto Montenegro M.D. DR: JENNIFER JOB#: [id number] CC: Aaron Gonzalez M.D.; Fax#: [phone]
--- NOTE | 2019-05-27 16:38 | Surgery Progress Note ---
Surgery Progress Note Subjective Additional Comments Patient had PEG tube placement by GI today. Procedure went well. Labs noted. Exam stable. Patient otherwise comfortable. Objective Last 24 Hour Vital Signs Date Time Temp Pulse Resp B/P (MAP) Pulse Ox O2 Delivery O2 Flow Rate FiO2 05/27/19 13:19 80 22 99 05/27/19 12:20 97.3 80 22 151/85 100 Nasal Cannula 3 05/27/19 12:10 80 22 146/75 100 Nasal Cannula 3 05/27/19 11:55 80 24 152/85 100 Nasal Cannula 3 05/27/19 11:50 82 20 100 05/27/19 11:45 82 24 170/83 100 Nasal Cannula 3 05/27/19 11:40 81 24 178/83 100 Nasal Cannula 3 05/27/19 11:37 97.4 81 24 155/89 100 Nasal Cannula 3 05/27/19 09:00 Room Air 05/27/19 08:00 97.5 82 20 143/76 (98) 98 05/27/19 04:00 98.1 81 18 147/79 (101) 98 05/27/19 00:00 98.2 82 20 147/78 (101) 97 05/26/19 21:00 Room Air 05/26/19 20:00 97.9 94 20 157/100 (119) 97 I&O Intake and Output 05/26/19 05/27/19 19:00 07:00 Intake Total 225 ml 600 ml Balance 225 ml 600 ml IV Total 225 ml 600 ml # Voids 3 2 Dressing: dry Wound: clean Cardiovascular: RSR Respiratory: clear Abdomen: soft, non-tender, present bowel sounds, other Extremities: no tenderness, no cyanosis Laboratory Tests Test 05/27/19 06:45 White Blood Count 3.4 K/UL (4.8-10.8) L Red Blood Count 4.48 M/UL (4.20-5.40) Hemoglobin 12.3 G/DL (12.0-16.0) Hematocrit 39.8 % (37.0-47.0) Mean Corpuscular Volume 89 FL (80-99) Mean Corpuscular Hemoglobin 27.5 PG (27.0-31.0) Mean Corpuscular Hemoglobin Concent 31.0 G/DL (32.0-36.0) L Red Cell Distribution Width 13.2 % (11.6-14.8) Platelet Count 252 K/UL (150-450) Mean Platelet Volume 9.6 FL (6.5-10.1) Neutrophils (%) (Auto) % (45.0-75.0) Lymphocytes (%) (Auto) % (20.0-45.0) Monocytes (%) (Auto) % (1.0-10.0) Eosinophils (%) (Auto) % (0.0-3.0) Basophils (%) (Auto) % (0.0-2.0) Differential Total Cells Counted 100 Neutrophils % (Manual) 51 % (45-75) Lymphocytes % (Manual) 33 % (20-45) Monocytes % (Manual) 14 % (1-10) H Eosinophils % (Manual) 2 % (0-3) Basophils % (Manual) 0 % (0-2) Band Neutrophils 0 % (0-8) Platelet Estimate Adequate Platelet Morphology Normal Red Blood Cell Morphology Normal Prothrombin Time 12.0 SEC (9.30-11.50) H Prothromb Time International Ratio 1.1 (0.9-1.1) Activated Partial Thromboplast Time 32 SEC (23-33) Sodium Level 142 MMOL/L (136-145) Potassium Level 2.9 MMOL/L (3.5-5.1) L Chloride Level 106 MMOL/L (98-107) Carbon Dioxide Level 28 MMOL/L (21-32) Anion Gap 8 mmol/L (5-15) Blood Urea Nitrogen 2 mg/dL (7-18) L Creatinine 0.4 MG/DL (0.55-1.30) L Estimat Glomerular Filtration Rate mL/min (>60) Glucose Level 118 MG/DL (74-106) H Calcium Level 9.4 MG/DL (8.5-10.1) Plan Problems: (1) Failure to thrive Assessment & Plan: Patient with decreased appetite and ability. No functional organic inability identified. Patient nutritionally deprived and forming wounds as well. Recommend psych eval Appreciate PEG placement by GI.Start tube feeds Appreciate GI input (2) Severe protein-calorie malnutrition Assessment & Plan: AILY ESTIMATED NEEDS: Needs based on cardiac, wound/ 52kg 25-30 kcals/kg 2095-3194 total kcals 1.25-1.5 g protein/kg 65-78 g total protein 25-30 mL/kg 4878-3345 total fluid mLs NUTRITION DIAGNOSIS: * Increased kcal/prot intake needs R/T wound healing as evidenced by pt admitted w/ sacral, BL heels, and rt hip wounds per photos, pending eval, admitted w/ FTT dx w/ refusing to eat. CURRENT DIET:REGULAR PO DIET RECOMMENDATIONS: Liberalized REGULAR w/ poor PO + texture per BILL OF LADING CLERK ADDITIONAL RECOMMENDATIONS: * Calibrated bedscale wt for accurate CBW * Add LOW NA to diet w/ PO intake consistently >50% * Ensure Enlive TID w/ meals * Wound healing: Add MVI x 1, Vit C 250mg QD add Edu 1pkt BID * F/up w/ VELMA COUNT x 72 hrs * Monitor lytes, replete as needed (3) Decubital ulcer Assessment & Plan: Pt presented on admission with multiple pressure injuries. R heel is maroon with scattered purple areas . Base of heel is fluctuant. Pt complained of pain when minimally palpated.(L)4.5cm x (W)7cm. L heel maroon with fluctuance. Pt also complained of pain when minimally palpated.(L)4.7cm x (W)5cm. Scattered areas of hyperpigmentation noted to buttocks. Tx.Plan: Apply Cavilon Skin Barrier to R and L heel. Cover each heel with Optifoam drsg.Change every 7 days and prn. Apply Moisture Barrier Paste to buttocks. Cover with Optifoam drsg. Change every 3 days and prn. Reposition at least every 2hours or as tolerated. Off-load heels with pillow. Howard Mcclellan May 27, 2019 16:38
--- NOTE | 2019-05-27 18:30 | NUR ---
NURSE NOTES: G tube dressing changed and is intact, g tube feeding started as order with 20 ml/hr. will continue to monitor.
--- NOTE | 2019-05-27 20:01 | NUR ---
HAND-OFF: Report given to HERMILA OSORIO.
--- NOTE | 2019-05-27 20:08 | NUR ---
NURSE NOTES: Pt received in bed, temp 100.4 and BP 165/82, head of bed elevated , gtube running, residual 10ml, IV fluids running, will contact md regarding temp and bp
--- NOTE | 2019-05-27 20:13 | NUR ---
NURSE NOTES: MD ordered tylenol 650 mg for temp, no orders for elevated BP of 165/82, MD Gonzalez aware.
[2019-05-27] MEDS ORDERED: Acetaminophen 650mg/20.3ml GT PRN (20:15)
[2019-05-28] VITALS: BP 150/79
[2019-05-28] MEDS: D5 1/2NS w/KCl 20mEq 1,000 ML IV SCH ×2 (03:55→17:25)
[2019-05-28 04:00] VITALS: BP 108/67
--- NOTE | 2019-05-28 06:16 | General Progress Note ---
Assessment/Plan Problem List: (1) Failure to thrive SNOMED: 73955652 Qualifiers: Qualified Codes: R62.7 - Adult failure to thrive Status: not improved, unchanged Assessment/Plan: s/p PEG GTF running dc planning per primary team Subjective ROS Limited/Unobtainable: No Allergies: Coded Allergies: No Known Allergies (Unverified , 05/22/19) Objective Last 24 Hour Vital Signs Date Time Temp Pulse Resp B/P (MAP) Pulse Ox O2 Delivery O2 Flow Rate FiO2 05/28/19 04:00 98.5 79 20 108/67 (81) 96 05/28/19 00:00 97.9 83 20 150/79 (102) 95 05/27/19 22:30 97.9 05/27/19 21:00 Room Air 05/27/19 20:00 100.4 97 20 165/82 (109) 95 05/27/19 16:00 98.1 99 20 162/100 (120) 98 05/27/19 13:19 80 22 99 05/27/19 12:20 97.3 80 22 151/85 100 Nasal Cannula 3 05/27/19 12:10 80 22 146/75 100 Nasal Cannula 3 05/27/19 12:00 97.8 90 20 155/86 (109) 98 05/27/19 11:55 80 24 152/85 100 Nasal Cannula 3 05/27/19 11:50 82 20 100 05/27/19 11:45 82 24 170/83 100 Nasal Cannula 3 05/27/19 11:40 81 24 178/83 100 Nasal Cannula 3 05/27/19 11:37 97.4 81 24 155/89 100 Nasal Cannula 3 05/27/19 09:00 Room Air 05/27/19 08:00 97.5 82 20 143/76 (98) 98 Intake and Output 05/27/19 05/28/19 19:00 07:00 Intake Total 1345 ml 75 ml Balance 1345 ml 75 ml Free Water 150 ml IV Total 1175 ml 75 ml Tube Feeding 20 ml # Voids 3 Laboratory Tests 05/27/19 06:45: White Blood Count 3.4L, Red Blood Count 4.48, Hemoglobin 12.3, Hematocrit 39.8, Mean Corpuscular Volume 89, Mean Corpuscular Hemoglobin 27.5, Mean Corpuscular Hemoglobin Concent 31.0L, Red Cell Distribution Width 13.2, Platelet Count 252, Mean Platelet Volume 9.6, Neutrophils (%) (Auto) , Lymphocytes (%) (Auto) , Monocytes (%) (Auto) , Eosinophils (%) (Auto) , Basophils (%) (Auto) , Differential Total Cells Counted 100, Neutrophils % (Manual) 51, Lymphocytes % ( Manual) 33, Monocytes % (Manual) 14H, Eosinophils % (Manual) 2, Basophils % ( Manual) 0, Band Neutrophils 0, Platelet Estimate Adequate, Platelet Morphology Normal, Red Blood Cell Morphology Normal, Prothrombin Time 12.0H, Prothromb Time International Ratio 1.1, Activated Partial Thromboplast Time 32, Sodium Level 142, Potassium Level 2.9L, Chloride Level 106, Carbon Dioxide Level 28, Anion Gap 8, Blood Urea Nitrogen 2L, Creatinine 0.4L, Estimat Glomerular Filtration Rate , Glucose Level 118H, Calcium Level 9.4 Height (Feet): 5 Height (Inches): 1.00 Weight (Pounds): 114 EENT: normal ENT inspection Neck: supple Cardiovascular: normal rate Respiratory/Chest: decreased breath sounds Abdomen: normal bowel sounds, non tender, soft Extremities: non-tender Dagoberto Montenegro MD May 28, 2019 06:16
--- NOTE | 2019-05-28 07:07 | Pulmonology Progress Note ---
Assessment/Plan Assessment/Plan IMPRESSION: 1. Anorexia. 2. Failure to thrive. 3. Azotemia. 4. Decreased vision in left eye. 5. Heel decubitus 6. S/p G tube DISCUSSION: Placement will be an issue Seen by psych and GI Seen by rfid specialist and surgery Will monitor PEG placed Aaron Gonzalez M.D. Subjective Interval Events: S/p GT Constitutional: Reports: no symptoms HEENT: Repors: no symptoms Respiratory: Reports: no symptoms Cardiovascular: Reports: no symptoms Gastrointestinal/Abdominal: Reports: no symptoms Genitourinary: Reports: no symptoms Allergies: Coded Allergies: No Known Allergies (Unverified , 05/22/19) Objective Last 24 Hour Vital Signs Date Time Temp Pulse Resp B/P (MAP) Pulse Ox O2 Delivery O2 Flow Rate FiO2 05/28/19 04:00 98.5 79 20 108/67 (81) 96 05/28/19 00:00 97.9 83 20 150/79 (102) 95 05/27/19 22:30 97.9 05/27/19 21:00 Room Air 05/27/19 20:00 100.4 97 20 165/82 (109) 95 05/27/19 16:00 98.1 99 20 162/100 (120) 98 05/27/19 13:19 80 22 99 05/27/19 12:20 97.3 80 22 151/85 100 Nasal Cannula 3 05/27/19 12:10 80 22 146/75 100 Nasal Cannula 3 05/27/19 12:00 97.8 90 20 155/86 (109) 98 05/27/19 11:55 80 24 152/85 100 Nasal Cannula 3 05/27/19 11:50 82 20 100 05/27/19 11:45 82 24 170/83 100 Nasal Cannula 3 05/27/19 11:40 81 24 178/83 100 Nasal Cannula 3 05/27/19 11:37 97.4 81 24 155/89 100 Nasal Cannula 3 05/27/19 09:00 Room Air 05/27/19 08:00 97.5 82 20 143/76 (98) 98 Intake and Output 05/27/19 05/28/19 19:00 07:00 Intake Total 1515 ml 1290 ml Balance 1515 ml 1290 ml Intake Oral 360 ml Free Water 300 ml 450 ml IV Total 1175 ml 125 ml Tube Feeding 40 ml 355 ml # Voids 3 2 # Bowel Movements 1 General Appearance: no acute distress HEENT: normocephalic Respiratory/Chest: chest wall non-tender, lungs clear Cardiovascular: normal peripheral pulses, normal rate Abdomen: normal bowel sounds Current Medications Medications (Trade) Dose Ordered Sig/Sky Route PRN Reason Start Time Stop Time Status Last Admin Dose Admin Acetaminophen (Tylenol) 650 mg Q4H PRN GT Mild Pain/Temp > 100.5 05/27/19 20:15 06/26/19 20:14 05/27/19 21:04 Ascorbic Acid (Vitamin C) 500 mg DAILY ORAL 05/24/19 09:00 06/23/19 08:59 Dextrose (Dextrose 50%) 25 ml Q30M PRN IV Hypoglycemia 05/26/19 10:45 06/25/19 10:44 Dextrose (Dextrose 50%) 50 ml Q30M PRN IV Hypoglycemia 05/26/19 10:45 06/25/19 10:44 05/26/19 10:46 Dextrose/ Electrolytes 1,000 ml @ 75 mls/hr [id number] IV 05/26/19 12:00 06/25/19 11:59 05/28/19 03:55 Escitalopram Oxalate (Lexapro) 10 mg DAILY ORAL 05/24/19 09:00 06/23/19 08:59 Hydrochlorothiazide (Hydrodiuril) 12.5 mg DAILY ORAL 05/24/19 09:00 06/23/19 08:59 Lorazepam (Ativan 2mg/ml 1ml) 1 mg Q4H PRN IVP For Anxiety 05/26/19 19:30 06/01/19 15:29 05/26/19 22:33 Mirtazapine (Remeron) 15 mg BEDTIME ORAL 05/25/19 21:00 06/24/19 20:59 05/27/19 21:04 Aaron Gonzalez MD May 28, 2019 07:07
--- NOTE | 2019-05-28 07:25 | NUR ---
HAND-OFF: Report given to DEVON Scott. Endorsed pt wearing abdominal binder and Gtube feeding increased to 45cc/hr this AM
--- NOTE | 2019-05-28 07:30 | NUR ---
NURSE NOTES: Received pt from HERMILA OSORIO. Pt is confused and orient x1. pt is in RA, No SOB or acute respiratory distress noted. pt has intact iv access LFA 22G is running well. Pt has g tube in place is working well with no residual. all needs attended, bed is locked and is in the lowest position, call light within easy reach. will continue to monitor.
[2019-05-28 07:42] LABS: BASOPHILS % (AUTO) 1.7 % (0.0-2.0); EOSINOPHILS % (AUTO) 0.9 % (0.0-3.0); HEMOGLOBIN 12.9 G/DL (12.0-16.0); LYMPHOCYTES % (AUTO) 27.5 % (20.0-45.0); MEAN CORPUSCULAR VOLUME 89 FL (80-99); MONOCYTES % (AUTO) 9.8 % (1.0-10.0); NEUTROPHILS % (AUTO) 60.1 % (45.0-75.0); PLATELET COUNT 227 K/UL (150-450); RED CELL DISTRIBUTION WIDTH 13.3 % (11.6-14.8); WHITE BLOOD COUNT 7.2 K/UL (4.8-10.8)
[2019-05-28 08:00] VITALS: BP 112/67
[2019-05-28 08:49] LABS: ANION GAP 5 mmol/L (5-15); BLOOD UREA NITROGEN 4 mg/dL (7-18); CALCIUM 9.6 MG/DL (8.5-10.1); CARBON DIOXIDE 31 MMOL/L (21-32); CHLORIDE 105 MMOL/L (98-107); CREATININE 0.5 MG/DL (0.55-1.30); POTASSIUM 3.7 MMOL/L (3.5-5.1); SODIUM 141 MMOL/L (136-145)
[2019-05-28] MEDS: Ascorbic Acid 500mg tab ORAL SCH (08:52)
[2019-05-28] MEDS: hydroCHLOROthiazide 12.5mg TAB ORAL SCH (08:52)
--- NOTE | 2019-05-28 10:30 | Progress Note ---
DATE: 05/22/2019 SUBJECTIVE: The patient is in bed now, status post G-tube placement. Calm and Mental status unchanged since previous encounter. Refusing care. MENTAL STATUS EXAMINATION: The patient is disoriented. Mood is dysphoric. Affect is constricted. Congruent mood. Thought process is concrete. Thought content, no suicidal or homicidal ideations. ASSESSMENT: 1. Stable. 2. Failure to thrive. PLAN: Continue current care, discussed with the team. Cata Roblero M.D. DR: Noemy JOB#: [id number] CC: CHERYL
[2019-05-28 12:00] VITALS: BP 139/77
--- NOTE | 2019-05-28 12:00 | NUR ---
NURSE NOTES: wounds treatments done as order and took pictures and uploaded and pt tolerate well. pt has 120ml residual, feeding holed and RETAIL DEPARTMENT SUPERVISOR DAVIN notified, no new order to RN. Will continue to monitor.
--- NOTE | 2019-05-28 12:52 | Surgery Progress Note ---
Surgery Progress Note Subjective Symptoms: improved, voiding well, passing flatus Objective Last 24 Hour Vital Signs Date Time Temp Pulse Resp B/P (MAP) Pulse Ox O2 Delivery O2 Flow Rate FiO2 05/28/19 09:00 Room Air 05/28/19 08:00 98.1 78 20 112/67 (82) 97 05/28/19 04:00 98.5 79 20 108/67 (81) 96 05/28/19 00:00 97.9 83 20 150/79 (102) 95 05/27/19 22:30 97.9 05/27/19 21:00 Room Air 05/27/19 20:00 100.4 97 20 165/82 (109) 95 05/27/19 16:00 98.1 99 20 162/100 (120) 98 05/27/19 13:19 80 22 99 I&O Intake and Output 05/27/19 05/28/19 18:59 06:59 Intake Total 1345 ml 1460 ml Balance 1345 ml 1460 ml Intake Oral 360 ml Free Water 150 ml 600 ml IV Total 1175 ml 125 ml Tube Feeding 20 ml 375 ml # Voids 3 2 # Bowel Movements 1 Dressing: saturated Wound: clean Cardiovascular: RSR Respiratory: decreased breath sounds Abdomen: soft, present bowel sounds, non-distended Extremities: no cyanosis Laboratory Tests Test 05/28/19 06:40 White Blood Count 7.2 K/UL (4.8-10.8) # Red Blood Count 4.60 M/UL (4.20-5.40) Hemoglobin 12.9 G/DL (12.0-16.0) Hematocrit 41.0 % (37.0-47.0) Mean Corpuscular Volume 89 FL (80-99) Mean Corpuscular Hemoglobin 27.9 PG (27.0-31.0) Mean Corpuscular Hemoglobin Concent 31.4 G/DL (32.0-36.0) L Red Cell Distribution Width 13.3 % (11.6-14.8) Platelet Count 227 K/UL (150-450) Mean Platelet Volume 10.6 FL (6.5-10.1) H Neutrophils (%) (Auto) 60.1 % (45.0-75.0) Lymphocytes (%) (Auto) 27.5 % (20.0-45.0) Monocytes (%) (Auto) 9.8 % (1.0-10.0) Eosinophils (%) (Auto) 0.9 % (0.0-3.0) Basophils (%) (Auto) 1.7 % (0.0-2.0) Sodium Level 141 MMOL/L (136-145) Potassium Level 3.7 MMOL/L (3.5-5.1) Chloride Level 105 MMOL/L (98-107) Carbon Dioxide Level 31 MMOL/L (21-32) Anion Gap 5 mmol/L (5-15) Blood Urea Nitrogen 4 mg/dL (7-18) L Creatinine 0.5 MG/DL (0.55-1.30) L Estimat Glomerular Filtration Rate mL/min (>60) Glucose Level 137 MG/DL (74-106) H Calcium Level 9.6 MG/DL (8.5-10.1) Plan Problems: (1) Failure to thrive Assessment & Plan: Patient with decreased appetite and ability. No functional organic inability identified. Patient nutritionally deprived and forming wounds as well. Recommend psych eval Appreciate PEG placement by GI.Start tube feeds Appreciate GI input (2) Severe protein-calorie malnutrition Assessment & Plan: AILY ESTIMATED NEEDS: Needs based on cardiac, wound/ 52kg 25-30 kcals/kg 0663-1767 total kcals 1.25-1.5 g protein/kg 65-78 g total protein 25-30 mL/kg 0065-2626 total fluid mLs NUTRITION DIAGNOSIS: * Increased kcal/prot intake needs R/T wound healing as evidenced by pt admitted w/ sacral, BL heels, and rt hip wounds per photos, pending eval, admitted w/ FTT dx w/ refusing to eat. CURRENT DIET:REGULAR PO DIET RECOMMENDATIONS: Liberalized REGULAR w/ poor PO + texture per LEGEND MAKER ADDITIONAL RECOMMENDATIONS: * Calibrated bedscale wt for accurate CBW * Add LOW NA to diet w/ PO intake consistently >50% * Ensure Enlive TID w/ meals * Wound healing: Add MVI x 1, Vit C 250mg QD add Edu 1pkt BID * F/up w/ VELMA COUNT x 72 hrs * Monitor lytes, replete as needed (3) Decubital ulcer Assessment & Plan: Pt presented on admission with multiple pressure injuries. R heel is maroon with scattered purple areas . Base of heel is fluctuant. Pt complained of pain when minimally palpated.(L)4.5cm x (W)7cm. L heel maroon with fluctuance. Pt also complained of pain when minimally palpated.(L)4.7cm x (W)5cm. Scattered areas of hyperpigmentation noted to buttocks. Tx.Plan: Apply Cavilon Skin Barrier to R and L heel. Cover each heel with Optifoam drsg.Change every 7 days and prn. Apply Moisture Barrier Paste to buttocks. Cover with Optifoam drsg. Change every 3 days and prn. Reposition at least every 2hours or as tolerated. Off-load heels with pillow. Howard Mcclellan May 28, 2019 12:52
--- NOTE | 2019-05-28 15:39 | NUR ---
CASE MANAGEMENT:REVIEW 05/28/19 SI: ANOREXIA. FTT. HEEL DECUBITUS S/P PEG PLACEMENT YESTERDAY T 98.1 HR 77 RR 20 B/P 139/77 SATS 97% ON RA LABS: BUN 4 CR 0.5 GLU 137 IS: IV KCL Q1HR X4 BAGS IVF@75/HR : MED/SURG STATUS 4 EAST DCP; FROM HOME
[2019-05-28 16:00] VITALS: BP 130/80
--- NOTE | 2019-05-28 19:21 | NUR ---
HAND-OFF: Report given to HERMILA OSORIO. Endorsed to monitor for feeding residual.
--- NOTE | 2019-05-28 19:48 | NUR ---
NURSE NOTES: Pt received awake, speaking and asking for a chair, head of bed elevated, gtube feeding running, will monitor residual, IV intact and running fluids, SCDS on, will continue to montir. Addendum: 05/28/19 at 1949 by HERMILA BURNS RN NURSE NOTES: will continue to monitor.
[2019-05-28 20:00] VITALS: BP 154/91
[2019-05-29] VITALS: BP 147/83
[2019-05-29 04:00] VITALS: BP 140/80
--- NOTE | 2019-05-29 04:15 | Progress Note ---
DATE: 05/28/2019 SUBJECTIVE: The patient is status post G-tube placement. Mental status unchanged. No agitation. MENTAL STATUS EXAMINATION: The patient is disoriented. Mood is neutral. Affect is flat. Thought process, there is a paucity of thought content. Thought content, no suicidal or homicidal ideation. Memory, concentration is impaired. Insight and judgment are impaired. ASSESSMENT: 1. Dementia. 2. Failure to thrive. PLAN: Continue current medications. Cata Roblero M.D. DR: JONATHAN JOB#: [id number] CC: CHERYL
--- NOTE | 2019-05-29 06:24 | General Progress Note ---
Assessment/Plan Problem List: (1) Failure to thrive SNOMED: 02990410 Qualifiers: Qualified Codes: R62.7 - Adult failure to thrive Status: not improved, unchanged Assessment/Plan: s/p PEG GTF running dc planning per primary team Subjective ROS Limited/Unobtainable: No Allergies: Coded Allergies: No Known Allergies (Unverified , 05/22/19) Objective Last 24 Hour Vital Signs Date Time Temp Pulse Resp B/P (MAP) Pulse Ox O2 Delivery O2 Flow Rate FiO2 05/29/19 04:00 97.9 78 20 140/80 (100) 95 05/29/19 00:00 98.0 80 20 147/83 (104) 95 05/28/19 21:00 Room Air 05/28/19 20:00 98.1 80 20 154/91 (112) 95 05/28/19 16:00 98.4 83 20 130/80 (97) 98 05/28/19 12:00 98.1 77 20 139/77 (97) 97 05/28/19 09:00 Room Air 05/28/19 08:00 98.1 78 20 112/67 (82) 97 Intake and Output 05/28/19 05/29/19 19:00 07:00 Intake Total 1590 ml 1285 ml Balance 1590 ml 1285 ml Free Water 300 ml 300 ml IV Total 900 ml 450 ml Tube Feeding 390 ml 535 ml # Voids 4 3 # Bowel Movements 1 Laboratory Tests 05/28/19 06:40: White Blood Count 7.2#, Red Blood Count 4.60, Hemoglobin 12.9, Hematocrit 41.0, Mean Corpuscular Volume 89, Mean Corpuscular Hemoglobin 27.9, Mean Corpuscular Hemoglobin Concent 31.4L, Red Cell Distribution Width 13.3, Platelet Count 227, Mean Platelet Volume 10.6H, Neutrophils (%) (Auto) 60.1, Lymphocytes (%) (Auto) 27.5, Monocytes (%) (Auto) 9.8, Eosinophils (%) (Auto) 0.9, Basophils (%) (Auto ) 1.7, Sodium Level 141, Potassium Level 3.7, Chloride Level 105, Carbon Dioxide Level 31, Anion Gap 5, Blood Urea Nitrogen 4L, Creatinine 0.5L, Estimat Glomerular Filtration Rate , Glucose Level 137H, Calcium Level 9.6 Height (Feet): 5 Height (Inches): 1.00 Weight (Pounds): 114 General Appearance: alert EENT: normal ENT inspection Neck: supple Cardiovascular: normal rate Respiratory/Chest: decreased breath sounds Abdomen: normal bowel sounds, non tender, soft Extremities: non-tender Dagoberto Montenegro MD May 29, 2019 06:24
--- NOTE | 2019-05-29 07:27 | NUR ---
HAND-OFF: Report given to DEVON Peralta.
--- NOTE | 2019-05-29 07:39 | Pulmonology Progress Note ---
Assessment/Plan Assessment/Plan IMPRESSION: 1. Anorexia. 2. Failure to thrive. 3. Azotemia. Corrected 4. Decreased vision in left eye. 5. Heel decubitus 6. S/p G tube DISCUSSION: Placement will be an issue Will dc home Seen by psych and GI Seen by realty loan specialist and surgery Will monitor PEG placed Aaron Gonzalez M.D. Subjective Interval Events: Tolerating TFs Constitutional: Reports: no symptoms HEENT: Repors: no symptoms Respiratory: Reports: no symptoms Cardiovascular: Reports: no symptoms Gastrointestinal/Abdominal: Reports: no symptoms Genitourinary: Reports: no symptoms Neurologic: Reports: no symptoms Allergies: Coded Allergies: No Known Allergies (Unverified , 05/22/19) Objective Last 24 Hour Vital Signs Date Time Temp Pulse Resp B/P (MAP) Pulse Ox O2 Delivery O2 Flow Rate FiO2 05/29/19 04:00 97.9 78 20 140/80 (100) 95 05/29/19 00:00 98.0 80 20 147/83 (104) 95 05/28/19 21:00 Room Air 05/28/19 20:00 98.1 80 20 154/91 (112) 95 05/28/19 16:00 98.4 83 20 130/80 (97) 98 05/28/19 12:00 98.1 77 20 139/77 (97) 97 05/28/19 09:00 Room Air 05/28/19 08:00 98.1 78 20 112/67 (82) 97 Intake and Output 05/28/19 05/29/19 19:00 07:00 Intake Total 1590 ml 1660 ml Balance 1590 ml 1660 ml Free Water 300 ml 300 ml IV Total 900 ml 825 ml Tube Feeding 390 ml 535 ml # Voids 4 3 # Bowel Movements 1 General Appearance: no acute distress HEENT: normocephalic Respiratory/Chest: chest wall non-tender, lungs clear Cardiovascular: normal peripheral pulses, normal rate Abdomen: normal bowel sounds Current Medications Medications (Trade) Dose Ordered Sig/Sky Route PRN Reason Start Time Stop Time Status Last Admin Dose Admin Acetaminophen (Tylenol) 650 mg Q4H PRN GT Mild Pain/Temp > 100.5 05/27/19 20:15 06/26/19 20:14 05/27/19 21:04 Ascorbic Acid (Vitamin C) 500 mg DAILY ORAL 05/24/19 09:00 06/23/19 08:59 05/28/19 08:52 Dextrose (Dextrose 50%) 25 ml Q30M PRN IV Hypoglycemia 05/26/19 10:45 06/25/19 10:44 Dextrose (Dextrose 50%) 50 ml Q30M PRN IV Hypoglycemia 05/26/19 10:45 06/25/19 10:44 05/26/19 10:46 Dextrose/ Electrolytes 1,000 ml @ 75 mls/hr [id number] IV 05/26/19 12:00 06/25/19 11:59 05/28/19 17:25 Escitalopram Oxalate (Lexapro) 10 mg DAILY ORAL 05/24/19 09:00 06/23/19 08:59 05/28/19 08:52 Hydrochlorothiazide (Hydrodiuril) 12.5 mg DAILY ORAL 05/24/19 09:00 06/23/19 08:59 05/28/19 08:52 Lorazepam (Ativan 2mg/ml 1ml) 1 mg Q4H PRN IVP For Anxiety 05/26/19 19:30 06/01/19 15:29 05/26/19 22:33 Mirtazapine (Remeron) 15 mg BEDTIME ORAL 05/25/19 21:00 06/24/19 20:59 05/28/19 20:36 Aaron Gonzalez MD May 29, 2019 07:39
[2019-05-29] MEDS ORDERED: MIRTAZAPINE15 M3 ORAL (07:40)
--- NOTE | 2019-05-29 07:41 | NUR ---
NURSE NOTES: Received pt in bed, sleeping. Room air. No s/s of distress/pain. HOB elevated. G-tube feeding on at 55 ml/hr. Goal at 60 ml/hr. Will monitor residual. IV on L wrist intact and patent, running D5 1/2 NS with KCL. SCDs on. Side rails x 2. Bed in the lowest, locked, alarm on. Will continue to monitor
[2019-05-29 08:00] VITALS: BP 163/83
[2019-05-29] MEDS: hydroCHLOROthiazide 12.5mg TAB ORAL SCH (08:15)
[2019-05-29] MEDS: Ascorbic Acid 500mg tab ORAL SCH (08:16)
[2019-05-29 09:40] LABS: BASOPHILS % (AUTO) 1.6 % (0.0-2.0); EOSINOPHILS % (AUTO) 1.6 % (0.0-3.0); HEMATOCRIT 36.7 % (37.0-47.0); HEMOGLOBIN 11.4 G/DL (12.0-16.0); LYMPHOCYTES % (AUTO) 32.1 % (20.0-45.0); MEAN CORPUSCULAR VOLUME 89 FL (80-99); MONOCYTES % (AUTO) 11.7 % (1.0-10.0); PLATELET COUNT 211 K/UL (150-450); RED BLOOD COUNT 4.12 M/UL (4.20-5.40); RED CELL DISTRIBUTION WIDTH 13.5 % (11.6-14.8); WHITE BLOOD COUNT 4.5 K/UL (4.8-10.8)
[2019-05-29 10:02] LABS: ANION GAP 3 mmol/L (5-15); BLOOD UREA NITROGEN 8 mg/dL (7-18); CALCIUM 9.1 MG/DL (8.5-10.1); CARBON DIOXIDE 34 MMOL/L (21-32); CHLORIDE 106 MMOL/L (98-107); CREATININE 0.3 MG/DL (0.55-1.30); PHOSPHORUS 2.1 MG/DL (2.5-4.9); POTASSIUM 3.9 MMOL/L (3.5-5.1); SODIUM 143 MMOL/L (136-145)
[2019-05-29 12:00] VITALS: BP 162/105
--- NOTE | 2019-05-29 12:06 | NUR ---
NURSE NOTES: Called family member (daughter) to notify that patient will be discharged and if anyone can come pick patient up. No one is available but they can come tomorrow. Called dr. Gonzalez and made aware about the situation and said to leave the discharge order.
--- NOTE | 2019-05-29 13:06 | NUR ---
CASE MANAGEMENT:REVIEW 05/29/19 SI: ANOREXIA. FTT. HEEL DECUBITUS S/P PEG PLACEMENT YESTERDAY T 98 HR 80 RR 20 B/P 147/83 SATS 95% ON RA WBC 4.5 CO2 34 CR 0.4 IS: IV KCL Q1HR X4 BAGS IVF@75/HR : MED/SURG STATUS 4 EAST DCP; FROM HOME
[2019-05-29 16:00] VITALS: BP 174/99
--- NOTE | 2019-05-29 16:16 | Surgery Progress Note ---
Surgery Progress Note Subjective Additional Comments no acute events comfortable stable Objective Last 24 Hour Vital Signs Date Time Temp Pulse Resp B/P (MAP) Pulse Ox O2 Delivery O2 Flow Rate FiO2 05/29/19 12:00 98.2 86 16 162/105 (124) 98 05/29/19 09:00 Room Air 05/29/19 08:00 98.1 80 16 163/83 (109) 96 05/29/19 04:00 97.9 78 20 140/80 (100) 95 05/29/19 00:00 98.0 80 20 147/83 (104) 95 05/28/19 21:00 Room Air 05/28/19 20:00 98.1 80 20 154/91 (112) 95 I&O Intake and Output 05/28/19 05/29/19 18:59 06:59 Intake Total 1500 ml 1850 ml Balance 1500 ml 1850 ml Free Water 300 ml 300 ml IV Total 825 ml 900 ml Tube Feeding 375 ml 650 ml # Voids 4 3 # Bowel Movements 1 Dressing: dry Wound: clean Cardiovascular: RSR Respiratory: clear Abdomen: soft, non-tender, present bowel sounds Extremities: no cyanosis Laboratory Tests Test 05/29/19 09:06 White Blood Count 4.5 K/UL (4.8-10.8) L Red Blood Count 4.12 M/UL (4.20-5.40) L Hemoglobin 11.4 G/DL (12.0-16.0) L Hematocrit 36.7 % (37.0-47.0) L Mean Corpuscular Volume 89 FL (80-99) Mean Corpuscular Hemoglobin 27.7 PG (27.0-31.0) Mean Corpuscular Hemoglobin Concent 31.1 G/DL (32.0-36.0) L Red Cell Distribution Width 13.5 % (11.6-14.8) Platelet Count 211 K/UL (150-450) Mean Platelet Volume 10.6 FL (6.5-10.1) H Neutrophils (%) (Auto) 53.0 % (45.0-75.0) Lymphocytes (%) (Auto) 32.1 % (20.0-45.0) Monocytes (%) (Auto) 11.7 % (1.0-10.0) H Eosinophils (%) (Auto) 1.6 % (0.0-3.0) Basophils (%) (Auto) 1.6 % (0.0-2.0) Sodium Level 143 MMOL/L (136-145) Potassium Level 3.9 MMOL/L (3.5-5.1) Chloride Level 106 MMOL/L (98-107) Carbon Dioxide Level 34 MMOL/L (21-32) H Anion Gap 3 mmol/L (5-15) L Blood Urea Nitrogen 8 mg/dL (7-18) Creatinine 0.3 MG/DL (0.55-1.30) L Estimat Glomerular Filtration Rate mL/min (>60) Glucose Level 103 MG/DL (74-106) Calcium Level 9.1 MG/DL (8.5-10.1) Phosphorus Level 2.1 MG/DL (2.5-4.9) L Magnesium Level 1.5 MG/DL (1.8-2.4) L Plan Problems: (1) Failure to thrive Assessment & Plan: Patient with decreased appetite and ability. No functional organic inability identified. Patient nutritionally deprived and forming wounds as well. Recommend psych eval Appreciate PEG placement by GI.Start tube feeds Appreciate GI input (2) Severe protein-calorie malnutrition Assessment & Plan: AILY ESTIMATED NEEDS: Needs based on cardiac, wound/ 52kg 25-30 kcals/kg 9528-0288 total kcals 1.25-1.5 g protein/kg 65-78 g total protein 25-30 mL/kg 6131-4108 total fluid mLs NUTRITION DIAGNOSIS: * Increased kcal/prot intake needs R/T wound healing as evidenced by pt admitted w/ sacral, BL heels, and rt hip wounds per photos, pending eval, admitted w/ FTT dx w/ refusing to eat. CURRENT DIET:REGULAR PO DIET RECOMMENDATIONS: Liberalized REGULAR w/ poor PO + texture per [employer]IL TRANSPORT DRIVER ADDITIONAL RECOMMENDATIONS: * Calibrated bedscale wt for accurate CBW * Add LOW NA to diet w/ PO intake consistently >50% * Ensure Enlive TID w/ meals * Wound healing: Add MVI x 1, Vit C 250mg QD add Edu 1pkt BID * F/up w/ VELMA COUNT x 72 hrs * Monitor lytes, replete as needed (3) Decubital ulcer Assessment & Plan: Pt presented on admission with multiple pressure injuries. R heel is maroon with scattered purple areas . Base of heel is fluctuant. Pt complained of pain when minimally palpated.(L)4.5cm x (W)7cm. L heel maroon with fluctuance. Pt also complained of pain when minimally palpated.(L)4.7cm x (W)5cm. Scattered areas of hyperpigmentation noted to buttocks. Tx.Plan: Apply Cavilon Skin Barrier to R and L heel. Cover each heel with Optifoam drsg.Change every 7 days and prn. Apply Moisture Barrier Paste to buttocks. Cover with Optifoam drsg. Change every 3 days and prn. Reposition at least every 2hours or as tolerated. Off-load heels with pillow. Howard Mcclellan May 29, 2019 16:16
--- NOTE | 2019-05-29 19:14 | NUR ---
HAND-OFF: Report given to DEVON Orellana.
--- NOTE | 2019-05-29 19:37 | NUR ---
NURSE NOTES: Pt received in bed awake, head of bed elevated, gtube feeding running at 60 cc/hr, scds on, will continue to monitor.
[2019-05-29 20:00] VITALS: BP 165/90
[2019-05-30] VITALS (7 sets, daily range): BP systolic 143–177; BP diastolic 72–91
--- NOTE | 2019-05-30 07:24 | NUR ---
HAND-OFF: Report given to DEVON Santamaria.
--- NOTE | 2019-05-30 08:00 | NUR ---
NURSE NOTES: received pt in bed, asleep, no sigh of pain or discomfort. IV access on the left wrist, saline locked. Patient receives Vital AF 1.2 @ 60cc/hr through G tube. Call light within easy reach, siderails up x2, bed locked at the lowest position possible. Will continue to monitor pt and follow up with the plan of care.
[2019-05-30] MEDS: hydroCHLOROthiazide 12.5mg TAB ORAL SCH (08:43)
[2019-05-30] MEDS: Ascorbic Acid 500mg tab ORAL SCH (08:43)
--- NOTE | 2019-05-30 09:05 | Pulmonology Progress Note ---
Assessment/Plan Assessment/Plan IMPRESSION: 1. Anorexia. 2. Failure to thrive. 3. Azotemia. Corrected 4. Decreased vision in left eye. 5. Heel decubitus 6. S/p G tube DISCUSSION: Placement will be an issue Will dc home; orders placed; discussed with nursing Await case management/social work followup Seen by psych and GI Seen by transmission specialist and surgery Will monitor PEG placed Aaron Gonzalez M.D. Subjective Interval Events: None new Constitutional: Reports: no symptoms HEENT: Repors: no symptoms Respiratory: Reports: no symptoms Cardiovascular: Reports: no symptoms Gastrointestinal/Abdominal: Reports: no symptoms Allergies: Coded Allergies: No Known Allergies (Unverified , 05/22/19) Objective Last 24 Hour Vital Signs Date Time Temp Pulse Resp B/P (MAP) Pulse Ox O2 Delivery O2 Flow Rate FiO2 05/30/19 08:00 98.4 85 20 168/88 (114) 96 05/30/19 04:00 98.0 82 22 174/85 (114) 95 05/30/19 00:00 97.8 83 20 165/88 (113) 95 05/29/19 21:00 Room Air 05/29/19 20:00 98.0 85 19 165/90 (115) 96 05/29/19 16:00 98.7 90 20 174/99 (124) 98 05/29/19 12:00 98.2 86 16 162/105 (124) 98 Intake and Output 05/29/19 05/30/19 19:00 07:00 Intake Total 1000 ml 980 ml Balance 1000 ml 980 ml Free Water 300 ml 320 ml Tube Feeding 700 ml 660 ml # Bowel Movements 1 1 General Appearance: no acute distress HEENT: normocephalic Respiratory/Chest: chest wall non-tender, lungs clear Cardiovascular: normal peripheral pulses Abdomen: normal bowel sounds Laboratory Tests 05/29/19 09:06: White Blood Count 4.5L, Red Blood Count 4.12L, Hemoglobin 11.4L, Hematocrit 36.7L, Mean Corpuscular Volume 89, Mean Corpuscular Hemoglobin 27.7, Mean Corpuscular Hemoglobin Concent 31.1L, Red Cell Distribution Width 13.5, Platelet Count 211, Mean Platelet Volume 10.6H, Neutrophils (%) (Auto) 53.0, Lymphocytes (%) (Auto) 32.1, Monocytes (%) (Auto) 11.7H, Eosinophils (%) (Auto) 1.6, Basophils (%) (Auto) 1.6, Sodium Level 143, Potassium Level 3.9, Chloride Level 106, Carbon Dioxide Level 34H, Anion Gap 3L, Blood Urea Nitrogen 8, Creatinine 0.3L, Estimat Glomerular Filtration Rate , Glucose Level 103, Calcium Level 9.1, Phosphorus Level 2.1L, Magnesium Level 1.5L Current Medications Medications (Trade) Dose Ordered Sig/Sky Route PRN Reason Start Time Stop Time Status Last Admin Dose Admin Acetaminophen (Tylenol) 650 mg Q4H PRN GT Mild Pain/Temp > 100.5 05/27/19 20:15 06/26/19 20:14 05/27/19 21:04 Ascorbic Acid (Vitamin C) 500 mg DAILY ORAL 05/24/19 09:00 06/23/19 08:59 05/30/19 08:43 Dextrose (Dextrose 50%) 25 ml Q30M PRN IV Hypoglycemia 05/26/19 10:45 06/25/19 10:44 Dextrose (Dextrose 50%) 50 ml Q30M PRN IV Hypoglycemia 05/26/19 10:45 06/25/19 10:44 05/26/19 10:46 Escitalopram Oxalate (Lexapro) 10 mg DAILY ORAL 05/24/19 09:00 06/23/19 08:59 05/30/19 08:43 Hydrochlorothiazide (Hydrodiuril) 12.5 mg DAILY ORAL 05/24/19 09:00 06/23/19 08:59 05/30/19 08:43 Lorazepam (Ativan 2mg/ml 1ml) 1 mg Q4H PRN IVP For Anxiety 05/26/19 19:30 06/01/19 15:29 05/26/19 22:33 Mirtazapine (Remeron) 15 mg BEDTIME ORAL 05/25/19 21:00 06/24/19 20:59 05/29/19 20:27 Aaron Gonzalez MD May 30, 2019 09:05
--- NOTE | 2019-05-30 10:25 | NUR ---
NURSE NOTES: notified dr Gonzalez regarding last night BP 174/85, and abnormal labs Mg 1.5 and Phos 2.1 No new orders received, dr ordered to procced with discharge of patient.
--- NOTE | 2019-05-30 11:00 | GI Progress Note ---
Assessment/Plan Problems: (1) Decubital ulcer ICD Codes: L89.90 - Pressure ulcer of unspecified site, unspecified stage SNOMED: 811436770 (2) Severe protein-calorie malnutrition ICD Codes: E43 - Unspecified severe protein-calorie malnutrition SNOMED: 602643457, 671728204, 918754974 (3) Hypoglycemia ICD Codes: E16.2 - Hypoglycemia, unspecified SNOMED: 006505390 (4) Failure to thrive SNOMED: 50938418 Qualifiers: Qualified Codes: R62.7 - Adult failure to thrive Status: stable Status Narrative Discussed with Dr. Montenegro. Assessment/Plan s/p PEG GTF running dc planning per primary team The patient was seen and examined at bedside and all new and available data was reviewed in the patients chart. I agree with the above findings, impression and plan. (Patient seen earlier today. Signature stamp does not reflect patient encounter time.). - Dagoberto Montenegro MD Subjective Subjective limited Objective Last 24 Hour Vital Signs Date Time Temp Pulse Resp B/P (MAP) Pulse Ox O2 Delivery O2 Flow Rate FiO2 05/30/19 08:00 98.4 85 20 168/88 (114) 96 05/30/19 04:00 98.0 82 22 174/85 (114) 95 05/30/19 00:00 97.8 83 20 165/88 (113) 95 05/29/19 21:00 Room Air 05/29/19 20:00 98.0 85 19 165/90 (115) 96 05/29/19 16:00 98.7 90 20 174/99 (124) 98 05/29/19 12:00 98.2 86 16 162/105 (124) 98 Intake and Output 05/29/19 05/30/19 19:00 07:00 Intake Total 1000 ml 980 ml Balance 1000 ml 980 ml Free Water 300 ml 320 ml Tube Feeding 700 ml 660 ml # Bowel Movements 1 1 Height (Feet): 5 Height (Inches): 1.00 Weight (Pounds): 114 Jessica Nichole FLOOR SANDING MACHINE OPERATOR May 30, 2019 11:00
--- NOTE | 2019-05-30 12:00 | NUR ---
NURSE NOTES: changed dressings of sacral, left thigh and bilateral heels as ordered by , documented.
--- NOTE | 2019-05-30 12:34 | NUR ---
DISCHARGE PLANNING CONTACTED [facility] [employer] ATTENDANT, BLAS T: [phone] INSTRUCTED TO USE [employer] T; [phone] F: [phone] [facility] (FOR FEEDING SUPPLIES) T: [phone] F: [phone] OR [phone] WAITING FOR BOLUS FEEDING ORDERS DISCUSSED WITH CHARGE NURSE IN [facility] Addendum: 05/30/19 at 1303 by ZANA PASCUAL LVN LVN SPOKE WITH CHARGE NURSE ~ SHE WILL OBTAIN BOLUS FEEDING ORDER
--- NOTE | 2019-05-30 12:45 | NUR ---
NURSE NOTES: daughter Marcus visited patient, was informed pt is not ready for discharge as home health is being set up.
--- NOTE | 2019-05-30 13:33 | NUR ---
INSURANCE UPDATED CLINICALS and REVIEW HAVE BEEN FAXED PLEASE FAX THE REVIEW AND CLINICAL TO: CM:BLAS #[phone] FAX#[phone] REVIEWS/CLINICALS
--- NOTE | 2019-05-30 13:55 | NUR ---
RD ASSESSMENT & RECOMMENDATIONS SEE CARE ACTIVITY FOR COMPLETE ASSESSMENT DAILY ESTIMATED NEEDS: Needs based on cardiac, wound/ 52kg 25-30 kcals/kg 6298-3240 total kcals 1.25-1.5 g protein/kg 65-78 g total protein 25-30 mL/kg 5546-6295 total fluid mLs NUTRITION DIAGNOSIS: * Increased kcal/prot intake needs R/T wound healing as evidenced by pt admitted w/ sacral, BL heels, and rt hip wounds, refer to WC eval, admitted w/ FTT dx w/ refusing to eat, now s/p PEG placement, on GT feeding PO DIET RECOMMENDATIONS: IF ORAL GRAT INDICATED -> regular/ texture per [facility] ENTERAL NUTRITION RECOMMENDATIONS: BOLUS FEEDING: Jevity 1.2 1 can (237ml) 5 x/day to provide 1185ml, 1425kcal, 66g prot, 955ml free water FOR BOLUS FEEDING: - rec Jevity 1.2 1 can (237ml) 5 times a day: will provide 100% est kcal/prot needs - Flush 100ml water post each bolus - HOB over 30 degrees FOR CONTINUOUS TF: rec Jevity 1.2 @ 50ml/hr x 24 hrs -> 1200ml, 1440kcal, 67g prot ADDITIONAL RECOMMENDATIONS: * Calibrated bedscale wt for accurate CBW * Replete lytes, monitor closely (low mag and phos on 05/29) -> rec to check f/up lytes * Wound healing: Vit C 250mg QD + Edu 1pkt BID * VELMA COUNT x 72 hrs completed-> POOR PO INTAKE . .
[2019-05-30] MEDS: LORazepam Inj 2mg/ml 1ml IVP PRN (15:02)
--- NOTE | 2019-05-30 15:28 | Surgery Progress Note ---
Surgery Progress Note Subjective Additional Comments Patient seen and examined bedside. No acute events. Resting comfortably. Labs noted. Exam stable. Objective Last 24 Hour Vital Signs Date Time Temp Pulse Resp B/P (MAP) Pulse Ox O2 Delivery O2 Flow Rate FiO2 05/30/19 12:00 98.3 82 19 154/82 (106) 97 05/30/19 09:00 Room Air 05/30/19 08:00 98.4 85 20 168/88 (114) 96 05/30/19 04:00 98.0 82 22 174/85 (114) 95 05/30/19 00:00 97.8 83 20 165/88 (113) 95 05/29/19 21:00 Room Air 05/29/19 20:00 98.0 85 19 165/90 (115) 96 05/29/19 16:00 98.7 90 20 174/99 (124) 98 I&O Intake and Output 05/29/19 05/30/19 19:00 07:00 Intake Total 1000 ml 980 ml Balance 1000 ml 980 ml Free Water 300 ml 320 ml Tube Feeding 700 ml 660 ml # Bowel Movements 1 1 Dressing: saturated Wound: other Drains: other Cardiovascular: RSR Respiratory: decreased breath sounds Abdomen: soft, present bowel sounds Extremities: no cyanosis, other Plan Problems: (1) Failure to thrive Assessment & Plan: Patient with decreased appetite and ability. No functional organic inability identified. Patient nutritionally deprived and forming wounds as well. Recommend psych eval Appreciate PEG placement by GI.Start tube feeds Appreciate GI input (2) Severe protein-calorie malnutrition Assessment & Plan: AILY ESTIMATED NEEDS: Needs based on cardiac, wound/ 52kg 25-30 kcals/kg 5387-9560 total kcals 1.25-1.5 g protein/kg 65-78 g total protein 25-30 mL/kg 6345-2807 total fluid mLs NUTRITION DIAGNOSIS: * Increased kcal/prot intake needs R/T wound healing as evidenced by pt admitted w/ sacral, BL heels, and rt hip wounds per photos, pending eval, admitted w/ FTT dx w/ refusing to eat. CURRENT DIET:REGULAR PO DIET RECOMMENDATIONS: Liberalized REGULAR w/ poor PO + texture per COLOR COATER ADDITIONAL RECOMMENDATIONS: * Calibrated bedscale wt for accurate CBW * Add LOW NA to diet w/ PO intake consistently >50% * Ensure Enlive TID w/ meals * Wound healing: Add MVI x 1, Vit C 250mg QD add Edu 1pkt BID * F/up w/ VELMA COUNT x 72 hrs * Monitor lytes, replete as needed (3) Decubital ulcer Assessment & Plan: Pt presented on admission with multiple pressure injuries. R heel is maroon with scattered purple areas . Base of heel is fluctuant. Pt complained of pain when minimally palpated.(L)4.5cm x (W)7cm. L heel maroon with fluctuance. Pt also complained of pain when minimally palpated.(L)4.7cm x (W)5cm. Scattered areas of hyperpigmentation noted to buttocks. Tx.Plan: Apply Cavilon Skin Barrier to R and L heel. Cover each heel with Optifoam drsg.Change every 7 days and prn. Apply Moisture Barrier Paste to buttocks. Cover with Optifoam drsg. Change every 3 days and prn. Reposition at least every 2hours or as tolerated. Off-load heels with pillow. Howard Mcclellan May 30, 2019 15:28
--- NOTE | 2019-05-30 16:21 | NUR ---
DISCHARGE UPDATE RECEIVED MESSAGE FROM HEALTH PLAN PETROGRAPHER, BLAS, STATING [facility] CALLED THEM AND STATED THEY ARE UNABLE TO SERVICE PATIENT FOR ENTERAL FEEDINGS BLAS REQUESTED REFERRAL BE FAXED TO [facility]; [phone] F: [phone] F/U CALL PLACED TO [facility]...THEY SAID THEY WILL CALL BACK
--- NOTE | 2019-05-30 19:00 | NUR ---
HAND-OFF: Report given to DEVON Mina.
--- NOTE | 2019-05-30 19:35 | NUR ---
NURSE NOTES: Patient in bed, with G tube intact connected to feeding. Call light in reach. Bed in lowest and lock engaged. Will continue to monitor.
--- NOTE | 2019-05-30 23:47 | NUR ---
HAND-OFF: Report given to DEVON Calle.
[2019-05-31] VITALS: BP 114/61
--- NOTE | 2019-05-31 | NUR ---
NURSE NOTES: Received report from DEVON Romano. Patient asleep. Breathing unlabored without distress, discomfort, or sob on a room air. No s/s of pain noted at this time. IV noted intact. Gtube running as ordered without residual. Bed placed at the lowest with alarm, brake, and siderails up for safety. Call light placed within reach. Will continue to monitor and provide care as ordered.
--- NOTE | 2019-05-31 03:30 | Progress Note ---
DATE: 05/30/2019 SUBJECTIVE: The patient is status post G-tube placement, tolerating feeding, withdrawn, and isolative. Not answering questions, confused, and is still refusing care. MENTAL STATUS EXAMINATION: The patient is awake, confused. Mood is neutral. Affect is flat. Thought process, there is a paucity of thought content. Thought content, no suicidal or homicidal ideation. Cognition is impaired. Insight and judgment non-existent. ASSESSMENT: Dementia with behavior disturbance. PLAN: 1. We will continue current medications. 2. Provide the patient with reality orientation and supportive therapy. Cata Roblero M.D. DR: JONATHAN JOB#: [id number] CC:
[2019-05-31 04:00] VITALS: BP 107/57
[2019-05-31 07:28] LABS: BASOPHILS % (AUTO) 2.1 % (0.0-2.0); EOSINOPHILS % (AUTO) 2.8 % (0.0-3.0); HEMATOCRIT 34.5 % (37.0-47.0); HEMOGLOBIN 10.7 G/DL (12.0-16.0); LYMPHOCYTES % (AUTO) 39.5 % (20.0-45.0); MEAN CORPUSCULAR VOLUME 89 FL (80-99); MONOCYTES % (AUTO) 11.7 % (1.0-10.0); NEUTROPHILS % (AUTO) 43.8 % (45.0-75.0); PLATELET COUNT 222 K/UL (150-450); RED BLOOD COUNT 3.86 M/UL (4.20-5.40); RED CELL DISTRIBUTION WIDTH 13.6 % (11.6-14.8); WHITE BLOOD COUNT 4.1 K/UL (4.8-10.8)
[2019-05-31 08:00] VITALS: BP 122/73
[2019-05-31 08:00] LABS: ANION GAP 5 mmol/L (5-15); BLOOD UREA NITROGEN 16 mg/dL (7-18); CALCIUM 9.8 MG/DL (8.5-10.1); CARBON DIOXIDE 33 MMOL/L (21-32); CHLORIDE 104 MMOL/L (98-107); CREATININE 0.4 MG/DL (0.55-1.30); POTASSIUM 3.8 MMOL/L (3.5-5.1); SODIUM 142 MMOL/L (136-145)
--- NOTE | 2019-05-31 08:00 | NUR ---
HAND-OFF: Report given to DEVON Das.
--- NOTE | 2019-05-31 08:01 | NUR ---
NURSE NOTES: Received patient sleeping comfortably in bed. IV at left wrist, 22 gauge, saline lock. Gtube feeding @ 60ml/hour. Bed at lowest level with 3 side rails up. Call light within reach. In no apparent distress at this time. Will continue to monitor.
[2019-05-31] MEDS: hydroCHLOROthiazide 12.5mg TAB ORAL SCH (09:15)
[2019-05-31] MEDS: Ascorbic Acid 500mg tab ORAL SCH (09:16)
--- NOTE | 2019-05-31 09:16 | Pulmonology Progress Note ---
Assessment/Plan Assessment/Plan IMPRESSION: 1. Anorexia. 2. Failure to thrive. 3. Azotemia. Corrected 4. Decreased vision in left eye. 5. Heel decubitus 6. S/p G tube DISCUSSION: Placement will be an issue Will dc home; orders placed; discussed with nursing Await case management/social work followup Seen by psych and GI Seen by product distribution specialist and surgery Will monitor PEG placed Aaron Gonzalez M.D. Subjective Interval Events: None new Constitutional: Reports: no symptoms HEENT: Repors: no symptoms Respiratory: Reports: no symptoms Cardiovascular: Reports: no symptoms Gastrointestinal/Abdominal: Reports: no symptoms Allergies: Coded Allergies: No Known Allergies (Unverified , 05/22/19) Objective Last 24 Hour Vital Signs Date Time Temp Pulse Resp B/P (MAP) Pulse Ox O2 Delivery O2 Flow Rate FiO2 05/31/19 04:00 98.5 85 18 107/57 (74) 95 05/31/19 00:00 98.1 80 18 114/61 (78) 96 05/30/19 21:40 86 143/72 (95) 96 05/30/19 21:00 Room Air 05/30/19 20:00 97.4 84 18 177/91 (119) 97 05/30/19 16:00 98.7 87 20 158/90 (112) 98 05/30/19 12:00 98.3 82 19 154/82 (106) 97 Intake and Output 05/30/19 05/31/19 19:00 07:00 Intake Total 690 ml Balance 690 ml Free Water 150 ml Tube Feeding 540 ml # Voids 8 1 # Bowel Movements 1 General Appearance: no acute distress HEENT: normocephalic Respiratory/Chest: chest wall non-tender, lungs clear Cardiovascular: normal peripheral pulses, normal rate Abdomen: normal bowel sounds Laboratory Tests 05/31/19 06:43: White Blood Count 4.1L, Red Blood Count 3.86L, Hemoglobin 10.7L, Hematocrit 34.5L, Mean Corpuscular Volume 89, Mean Corpuscular Hemoglobin 27.9, Mean Corpuscular Hemoglobin Concent 31.2L, Red Cell Distribution Width 13.6, Platelet Count 222, Mean Platelet Volume 11.5H, Neutrophils (%) (Auto) 43.8L, Lymphocytes (%) (Auto) 39.5, Monocytes (%) (Auto) 11.7H, Eosinophils (%) (Auto) 2.8, Basophils (%) (Auto) 2.1H, Sodium Level 142, Potassium Level 3.8, Chloride Level 104, Carbon Dioxide Level 33H, Anion Gap 5, Blood Urea Nitrogen 16, Creatinine 0.4L, Estimat Glomerular Filtration Rate , Glucose Level 104, Calcium Level 9.8 Current Medications Medications (Trade) Dose Ordered Sig/Sky Route PRN Reason Start Time Stop Time Status Last Admin Dose Admin Acetaminophen (Tylenol) 650 mg Q4H PRN GT Mild Pain/Temp > 100.5 05/27/19 20:15 06/26/19 20:14 05/27/19 21:04 Ascorbic Acid (Vitamin C) 500 mg DAILY ORAL 05/24/19 09:00 06/23/19 08:59 05/30/19 08:43 Dextrose (Dextrose 50%) 25 ml Q30M PRN IV Hypoglycemia 05/26/19 10:45 06/25/19 10:44 Dextrose (Dextrose 50%) 50 ml Q30M PRN IV Hypoglycemia 05/26/19 10:45 06/25/19 10:44 05/26/19 10:46 Escitalopram Oxalate (Lexapro) 10 mg DAILY ORAL 05/24/19 09:00 06/23/19 08:59 05/30/19 08:43 Hydrochlorothiazide (Hydrodiuril) 12.5 mg DAILY ORAL 05/24/19 09:00 06/23/19 08:59 05/30/19 08:43 Lorazepam (Ativan 2mg/ml 1ml) 1 mg Q4H PRN IVP For Anxiety 05/26/19 19:30 06/01/19 15:29 05/30/19 15:02 Mirtazapine (Remeron) 15 mg BEDTIME ORAL 05/25/19 21:00 06/24/19 20:59 05/30/19 20:19 Aaron Gonzalez MD May 31, 2019 09:16
--- NOTE | 2019-05-31 11:09 | NUR ---
DISCHARGE PLANNING REFERRED TO [facility] (FOR TUBE FEEDING AND SUPPLIES) T: [phone] F: [phone] REFERRED YESTERDAY..F/U CALL PLACED THIS MORNING...SPOKE WITH JB WHO STATED THEY ARE IN THE PROCESS OF CREATING AN ACCOUNT FOR THIS PATIENT. JB SAID SOMEONE WILL CALL THIS SPINDLE REPAIRER BACK ONCE EVERYTHING HAS BEEN APPROVED AND ARRANGED [facility] T; [phone] F: [phone] SPOKE WITH CHANCE AT [facility] WHO STATED THEY WILL SEE PATIENT UPON DISCHARGE DISCUSSED WITH BEDSIDE NURSE ABOUT TEACHING DAUGHTER HOW TO DO BOLUS FEEDINGS
[2019-05-31 12:00] VITALS: BP 100/75
--- NOTE | 2019-05-31 12:53 | GI Progress Note ---
Assessment/Plan Problems: (1) Decubital ulcer ICD Codes: L89.90 - Pressure ulcer of unspecified site, unspecified stage SNOMED: 235274767 (2) Severe protein-calorie malnutrition ICD Codes: E43 - Unspecified severe protein-calorie malnutrition SNOMED: 293676127, 193819971, 803164896 (3) Hypoglycemia ICD Codes: E16.2 - Hypoglycemia, unspecified SNOMED: 566025735 (4) Failure to thrive SNOMED: 40193663 Qualifiers: Qualified Codes: R62.7 - Adult failure to thrive Status: unchanged Status Narrative Discussed with Dr. Montenegro. Assessment/Plan s/p PEG GTF running dc planning per primary team The patient was seen and examined at bedside and all new and available data was reviewed in the patients chart. I agree with the above findings, impression and plan. (Patient seen earlier today. Signature stamp does not reflect patient encounter time.). - Dagoberto Montenegro MD Subjective Subjective limited Objective Last 24 Hour Vital Signs Date Time Temp Pulse Resp B/P (MAP) Pulse Ox O2 Delivery O2 Flow Rate FiO2 05/31/19 09:00 Room Air 05/31/19 08:00 97.3 82 21 122/73 (89) 97 05/31/19 04:00 98.5 85 18 107/57 (74) 95 05/31/19 00:00 98.1 80 18 114/61 (78) 96 05/30/19 21:40 86 143/72 (95) 96 05/30/19 21:00 Room Air 05/30/19 20:00 97.4 84 18 177/91 (119) 97 05/30/19 16:00 98.7 87 20 158/90 (112) 98 Intake and Output 05/30/19 05/31/19 19:00 07:00 Intake Total 690 ml Balance 690 ml Free Water 150 ml Tube Feeding 540 ml # Voids 8 1 # Bowel Movements 1 Laboratory Tests Test 05/31/19 06:43 White Blood Count 4.1 K/UL (4.8-10.8) L Red Blood Count 3.86 M/UL (4.20-5.40) L Hemoglobin 10.7 G/DL (12.0-16.0) L Hematocrit 34.5 % (37.0-47.0) L Mean Corpuscular Volume 89 FL (80-99) Mean Corpuscular Hemoglobin 27.9 PG (27.0-31.0) Mean Corpuscular Hemoglobin Concent 31.2 G/DL (32.0-36.0) L Red Cell Distribution Width 13.6 % (11.6-14.8) Platelet Count 222 K/UL (150-450) Mean Platelet Volume 11.5 FL (6.5-10.1) H Neutrophils (%) (Auto) 43.8 % (45.0-75.0) L Lymphocytes (%) (Auto) 39.5 % (20.0-45.0) Monocytes (%) (Auto) 11.7 % (1.0-10.0) H Eosinophils (%) (Auto) 2.8 % (0.0-3.0) Basophils (%) (Auto) 2.1 % (0.0-2.0) H Sodium Level 142 MMOL/L (136-145) Potassium Level 3.8 MMOL/L (3.5-5.1) Chloride Level 104 MMOL/L (98-107) Carbon Dioxide Level 33 MMOL/L (21-32) H Anion Gap 5 mmol/L (5-15) Blood Urea Nitrogen 16 mg/dL (7-18) Creatinine 0.4 MG/DL (0.55-1.30) L Estimat Glomerular Filtration Rate mL/min (>60) Glucose Level 104 MG/DL (74-106) Calcium Level 9.8 MG/DL (8.5-10.1) Height (Feet): 5 Height (Inches): 1.00 Weight (Pounds): 114 General Appearance: WD/WN, no apparent distress, alert Cardiovascular: normal rate Respiratory/Chest: normal breath sounds, no respiratory distress Abdominal Exam: normal bowel sounds, non tender, soft Extremities: normal range of motion, non-tender Jessica Nichole NP May 31, 2019 12:53
--- NOTE | 2019-05-31 13:25 | NUR ---
CASE MANAGEMENT:REVIEW 05/31/19 SI: ANOREXIA. FTT. HEEL DECUBITUS S/P PEG PLACEMENT YESTERDAY 97.3 82 21 122/73 97% ON RA H/H-10.7/34.5 IS: IV ATIVAN Q4HRS PRN REMERON PO QHS HCTZ PO QD VIT C PO QD LEXAPRO PO QD : MED/SURG STATUS 4 [facility] PLAN: TUBE FEEDING....JEVITY 1.2 1 CAN 5 TIMES PER DAY. FLUSH WITH 100ML WATER POST BOLUS : MED/SURG STATUS 4 [facility] DCP; FROM HOME
--- NOTE | 2019-05-31 13:29 | Surgery Progress Note ---
Surgery Progress Note Subjective Additional Comments no acute events. comfortable stable. tolerating tube feeds. labs noted Objective Last 24 Hour Vital Signs Date Time Temp Pulse Resp B/P (MAP) Pulse Ox O2 Delivery O2 Flow Rate FiO2 05/31/19 12:00 98.2 80 20 100/75 (83) 97 05/31/19 09:00 Room Air 05/31/19 08:00 97.3 82 21 122/73 (89) 97 05/31/19 04:00 98.5 85 18 107/57 (74) 95 05/31/19 00:00 98.1 80 18 114/61 (78) 96 05/30/19 21:40 86 143/72 (95) 96 05/30/19 21:00 Room Air 05/30/19 20:00 97.4 84 18 177/91 (119) 97 05/30/19 16:00 98.7 87 20 158/90 (112) 98 I&O Intake and Output 05/30/19 05/31/19 19:00 07:00 Intake Total 690 ml Balance 690 ml Free Water 150 ml Tube Feeding 540 ml # Voids 8 1 # Bowel Movements 1 Dressing: dry Wound: clean Cardiovascular: RSR Respiratory: decreased breath sounds Abdomen: soft, present bowel sounds, non-distended Extremities: no cyanosis, other Laboratory Tests Test 05/31/19 06:43 White Blood Count 4.1 K/UL (4.8-10.8) L Red Blood Count 3.86 M/UL (4.20-5.40) L Hemoglobin 10.7 G/DL (12.0-16.0) L Hematocrit 34.5 % (37.0-47.0) L Mean Corpuscular Volume 89 FL (80-99) Mean Corpuscular Hemoglobin 27.9 PG (27.0-31.0) Mean Corpuscular Hemoglobin Concent 31.2 G/DL (32.0-36.0) L Red Cell Distribution Width 13.6 % (11.6-14.8) Platelet Count 222 K/UL (150-450) Mean Platelet Volume 11.5 FL (6.5-10.1) H Neutrophils (%) (Auto) 43.8 % (45.0-75.0) L Lymphocytes (%) (Auto) 39.5 % (20.0-45.0) Monocytes (%) (Auto) 11.7 % (1.0-10.0) H Eosinophils (%) (Auto) 2.8 % (0.0-3.0) Basophils (%) (Auto) 2.1 % (0.0-2.0) H Sodium Level 142 MMOL/L (136-145) Potassium Level 3.8 MMOL/L (3.5-5.1) Chloride Level 104 MMOL/L (98-107) Carbon Dioxide Level 33 MMOL/L (21-32) H Anion Gap 5 mmol/L (5-15) Blood Urea Nitrogen 16 mg/dL (7-18) Creatinine 0.4 MG/DL (0.55-1.30) L Estimat Glomerular Filtration Rate mL/min (>60) Glucose Level 104 MG/DL (74-106) Calcium Level 9.8 MG/DL (8.5-10.1) Plan Problems: (1) Failure to thrive Assessment & Plan: Patient with decreased appetite and ability. No functional organic inability identified. Patient nutritionally deprived and forming wounds as well. Recommend psych eval Appreciate feeding tube placement by GI. as tolerated tube feeds (2) Severe protein-calorie malnutrition Assessment & Plan: AILY ESTIMATED NEEDS: Needs based on cardiac, wound/ 52kg 25-30 kcals/kg 4596-8320 total kcals 1.25-1.5 g protein/kg 65-78 g total protein 25-30 mL/kg 3236-0695 total fluid mLs NUTRITION DIAGNOSIS: * Increased kcal/prot intake needs R/T wound healing as evidenced by pt admitted w/ sacral, BL heels, and rt hip wounds per photos, pending eval, admitted w/ FTT dx w/ refusing to eat. CURRENT DIET:REGULAR PO DIET RECOMMENDATIONS: Liberalized REGULAR w/ poor PO + texture per [employer] ADDITIONAL RECOMMENDATIONS: * Calibrated bedscale wt for accurate CBW * Add LOW NA to diet w/ PO intake consistently >50% * Ensure Enlive TID w/ meals * Wound healing: Add MVI x 1, Vit C 250mg QD add Edu 1pkt BID * F/up w/ VELMA COUNT x 72 hrs * Monitor lytes, replete as needed (3) Decubital ulcer Assessment & Plan: Pt presented on admission with multiple pressure injuries. R heel is maroon with scattered purple areas . Base of heel is fluctuant. Pt complained of pain when minimally palpated.(L)4.5cm x (W)7cm. L heel maroon with fluctuance. Pt also complained of pain when minimally palpated.(L)4.7cm x (W)5cm. Scattered areas of hyperpigmentation noted to buttocks. Tx.Plan: Apply Cavilon Skin Barrier to R and L heel. Cover each heel with Optifoam drsg.Change every 7 days and prn. Apply Moisture Barrier Paste to buttocks. Cover with Optifoam drsg. Change every 3 days and prn. Reposition at least every 2hours or as tolerated. Off-load heels with pillow. Howard Mcclellan May 31, 2019 13:29
[2019-05-31 16:00] VITALS: BP 127/66
--- NOTE | 2019-05-31 19:03 | NUR ---
HAND-OFF: Report given to DEVON Fierro.
--- NOTE | 2019-05-31 19:30 | NUR ---
NURSE NOTES: Patient awake in bed, responds appropriately. No complaints of pain. Gtube connected to feeding. Call light in reach. Bed in lowest, lock engaged and alarm on. Will continue to monitor.
[2019-05-31 20:00] VITALS: BP 139/61
[2019-06-01] VITALS: BP 133/64
--- NOTE | 2019-06-01 00:30 | Progress Note ---
DATE: 05/31/2019 SUBJECTIVE: The patient is calmer. Tolerating G-tube feeding. Comfortable. No agitation noted. Did not know the date. MENTAL STATUS EXAMINATION: The patient is alert. Mood is neutral. Affect is flat. Thought process is concrete. Thought content, no suicidal or homicidal ideation. ASSESSMENT: 1. Major depressive disorder. 2. Failure to thrive. 3. Status post G-tube. PLAN: 1. We will continue the Lexapro. 2. Continue the Remeron. 3. Continue to follow and readjust the medications. Cata Roblero M.D. DR: JOSE JOB#: [id number] CC:
--- NOTE | 2019-06-01 01:53 | NUR ---
HAND-OFF: Report given to DEVON Charles.
[2019-06-01 04:00] VITALS: BP 143/69
--- NOTE | 2019-06-01 07:02 | NUR ---
HAND-OFF: Report given to DEVON Montenegro.
--- NOTE | 2019-06-01 07:10 | NUR ---
NURSE NOTES: Received patient asleep on bed. No SOB or cardiac distress. Gtube intact and patent, feeding ongoing and infusing well. IV line intact and patent, no s/s of infiltration. Kept HOB elevated. Bed locked in lowest position. Will continue plan of care.
[2019-06-01 07:15] LABS: BASOPHILS % (AUTO) 1.2 % (0.0-2.0); EOSINOPHILS % (AUTO) 2.6 % (0.0-3.0); HEMATOCRIT 32.9 % (37.0-47.0); HEMOGLOBIN 10.4 G/DL (12.0-16.0); LYMPHOCYTES % (AUTO) 35.4 % (20.0-45.0); MEAN CORPUSCULAR VOLUME 89 FL (80-99); MONOCYTES % (AUTO) 11.9 % (1.0-10.0); NEUTROPHILS % (AUTO) 48.8 % (45.0-75.0); PLATELET COUNT 231 K/UL (150-450); RED BLOOD COUNT 3.71 M/UL (4.20-5.40); RED CELL DISTRIBUTION WIDTH 13.5 % (11.6-14.8); WHITE BLOOD COUNT 4.4 K/UL (4.8-10.8)
[2019-06-01 07:21] LABS: ANION GAP 4 mmol/L (5-15); BLOOD UREA NITROGEN 18 mg/dL (7-18); CALCIUM 9.7 MG/DL (8.5-10.1); CARBON DIOXIDE 33 MMOL/L (21-32); CHLORIDE 105 MMOL/L (98-107); CREATININE 0.3 MG/DL (0.55-1.30); POTASSIUM 3.9 MMOL/L (3.5-5.1); SODIUM 142 MMOL/L (136-145)
[2019-06-01 08:00] VITALS: BP 170/90
--- NOTE | 2019-06-01 09:04 | Pulmonology Progress Note ---
Assessment/Plan Assessment/Plan IMPRESSION: 1. Anorexia. 2. Failure to thrive. 3. Azotemia. Corrected 4. Decreased vision in left eye. 5. Heel decubitus 6. S/p G tube DISCUSSION: Placement will be an issue Will dc home; orders placed; discussed with nursing Await case management/social work followup Seen by psych and GI Seen by public transit specialist and surgery Will monitor PEG placed Aaron Gonzalez M.D. Subjective Interval Events: None new Constitutional: Reports: no symptoms HEENT: Repors: no symptoms Respiratory: Reports: no symptoms Cardiovascular: Reports: no symptoms Gastrointestinal/Abdominal: Reports: no symptoms Allergies: Coded Allergies: No Known Allergies (Unverified , 05/22/19) Objective Last 24 Hour Vital Signs Date Time Temp Pulse Resp B/P (MAP) Pulse Ox O2 Delivery O2 Flow Rate FiO2 06/01/19 04:00 97.9 77 18 143/69 (93) 96 06/01/19 00:00 98.1 88 18 133/64 (87) 96 05/31/19 21:00 Room Air 05/31/19 20:00 98.2 84 17 139/61 (87) 97 05/31/19 16:00 98.1 83 19 127/66 (86) 97 05/31/19 12:00 98.2 80 20 100/75 (83) 97 Intake and Output 05/31/19 06/01/19 18:59 06:59 Intake Total 60 ml 570 ml Output Total 1100 ml Balance 60 ml -530 ml Free Water 150 ml Tube Feeding 60 ml 420 ml Output Urine Total 1100 ml # Voids 1 4 General Appearance: no acute distress HEENT: normocephalic Respiratory/Chest: chest wall non-tender, lungs clear Cardiovascular: normal peripheral pulses, normal rate Abdomen: normal bowel sounds Laboratory Tests 06/01/19 05:29: White Blood Count 4.4L, Red Blood Count 3.71L, Hemoglobin 10.4L, Hematocrit 32.9L, Mean Corpuscular Volume 89, Mean Corpuscular Hemoglobin 27.9, Mean Corpuscular Hemoglobin Concent 31.5L, Red Cell Distribution Width 13.5, Platelet Count 231, Mean Platelet Volume 10.5H, Neutrophils (%) (Auto) 48.8, Lymphocytes (%) (Auto) 35.4, Monocytes (%) (Auto) 11.9H, Eosinophils (%) (Auto) 2.6, Basophils (%) (Auto) 1.2, Sodium Level 142, Potassium Level 3.9, Chloride Level 105, Carbon Dioxide Level 33H, Anion Gap 4L, Blood Urea Nitrogen 18, Creatinine 0.3L, Estimat Glomerular Filtration Rate , Glucose Level 97, Calcium Level 9.7 Current Medications Medications (Trade) Dose Ordered Sig/Sky Route PRN Reason Start Time Stop Time Status Last Admin Dose Admin Acetaminophen (Tylenol) 650 mg Q4H PRN GT Mild Pain/Temp > 100.5 05/27/19 20:15 06/26/19 20:14 05/27/19 21:04 Ascorbic Acid (Vitamin C) 500 mg DAILY ORAL 05/24/19 09:00 06/23/19 08:59 05/31/19 09:16 Dextrose (Dextrose 50%) 25 ml Q30M PRN IV Hypoglycemia 05/26/19 10:45 06/25/19 10:44 Dextrose (Dextrose 50%) 50 ml Q30M PRN IV Hypoglycemia 05/26/19 10:45 06/25/19 10:44 05/26/19 10:46 Escitalopram Oxalate (Lexapro) 10 mg DAILY ORAL 05/24/19 09:00 06/23/19 08:59 05/31/19 09:16 Hydrochlorothiazide (Hydrodiuril) 12.5 mg DAILY ORAL 05/24/19 09:00 06/23/19 08:59 05/31/19 09:15 Lorazepam (Ativan 2mg/ml 1ml) 1 mg Q4H PRN IVP For Anxiety 05/26/19 19:30 06/01/19 15:29 05/30/19 15:02 Mirtazapine (Remeron) 15 mg BEDTIME ORAL 05/25/19 21:00 06/24/19 20:59 05/31/19 20:09 Aaron Gonzalez MD Jun 01, 2019 09:04
[2019-06-01] MEDS: hydroCHLOROthiazide 12.5mg TAB ORAL SCH (10:29)
[2019-06-01] MEDS: Ascorbic Acid 500mg tab ORAL SCH (10:30)
--- NOTE | 2019-06-01 10:45 | NUR ---
DISCHARGE PLANNING THIS [employer]ERN C[employer]TER SPOKE WITH PATIENT'S DAUGHTER THIS MORNING AND SHE IS AWARE OF DISCHARGE HOME FOR TODAY. NURSING NEEDS TO CONTACT DAUGHTER THIS MORNING TO ARRANGE DISCHARGE TIME ~ DISCUSSED WITH CHARGE NURSE, MARGRET SPOKE WITH PATRICK @ [facility] (FOR TUBE FEEDING AND SUPPLIES) T: [phone] THIS MORNING SUPPLIES WILL BE DELIVERED TO PATIENT'S HOME TOMORROW MORNING *30 SYRINGES *6 500ML BOTTLES OF STERILE WATER *150 CANS OF JEVITY DAUGHTER CONFIRMED SHE KNOWS HOW TO DO BOLUS FEEDINGS CALLED [facility] T; [phone] AND INFORMED PILAR THAT PATIENT IS DISCHARGING TODAY THEY WILL SEE PATIENT AT HOME TOMORROW PATIENT WILL NEED TO BE GIVEN 1-2 DAY SUPPLY OF FEEDINGS AND SYRINGES FOR BOLUS FEEDINGS ...NURSING TO SUPPLY
--- NOTE | 2019-06-01 11:12 | NUR ---
NURSE NOTES: Patient for discharge today. Family member Marcus made aware, said that somebody will be home around 3pm today to care for the patient.
[2019-06-01 12:00] VITALS: BP 140/80
--- NOTE | 2019-06-01 14:08 | GI Progress Note ---
Assessment/Plan Problems: (1) Decubital ulcer ICD Codes: L89.90 - Pressure ulcer of unspecified site, unspecified stage SNOMED: 095665764 (2) Severe protein-calorie malnutrition ICD Codes: E43 - Unspecified severe protein-calorie malnutrition SNOMED: 497132917, 318826097, 118134705 (3) Hypoglycemia ICD Codes: E16.2 - Hypoglycemia, unspecified SNOMED: 060132982 (4) Failure to thrive SNOMED: 11397678 Qualifiers: Qualified Codes: R62.7 - Adult failure to thrive Status: stable, unchanged Status Narrative Discussed with Dr. Montenegro. Assessment/Plan s/p PEG GTF tolerated ppi prn transfusion dc planning per primary team The patient was seen and examined at bedside and all new and available data was reviewed in the patients chart. I agree with the above findings, impression and plan. (Patient seen earlier today. Signature stamp does not reflect patient encounter time.). - Dagoberto Montenegro MD Subjective Subjective limited Objective Last 24 Hour Vital Signs Date Time Temp Pulse Resp B/P (MAP) Pulse Ox O2 Delivery O2 Flow Rate FiO2 06/01/19 12:00 97.2 70 18 140/80 (100) 95 06/01/19 08:00 97.4 78 20 170/90 (116) 97 06/01/19 04:00 97.9 77 18 143/69 (93) 96 06/01/19 00:00 98.1 88 18 133/64 (87) 96 05/31/19 21:00 Room Air 05/31/19 20:00 98.2 84 17 139/61 (87) 97 05/31/19 16:00 98.1 83 19 127/66 (86) 97 Intake and Output 05/31/19 06/01/19 19:00 07:00 Intake Total 60 ml 510 ml Output Total 1100 ml Balance 60 ml -590 ml Free Water 150 ml Tube Feeding 60 ml 360 ml Output Urine Total 1100 ml # Voids 4 Laboratory Tests Test 06/01/19 05:29 White Blood Count 4.4 K/UL (4.8-10.8) L Red Blood Count 3.71 M/UL (4.20-5.40) L Hemoglobin 10.4 G/DL (12.0-16.0) L Hematocrit 32.9 % (37.0-47.0) L Mean Corpuscular Volume 89 FL (80-99) Mean Corpuscular Hemoglobin 27.9 PG (27.0-31.0) Mean Corpuscular Hemoglobin Concent 31.5 G/DL (32.0-36.0) L Red Cell Distribution Width 13.5 % (11.6-14.8) Platelet Count 231 K/UL (150-450) Mean Platelet Volume 10.5 FL (6.5-10.1) H Neutrophils (%) (Auto) 48.8 % (45.0-75.0) Lymphocytes (%) (Auto) 35.4 % (20.0-45.0) Monocytes (%) (Auto) 11.9 % (1.0-10.0) H Eosinophils (%) (Auto) 2.6 % (0.0-3.0) Basophils (%) (Auto) 1.2 % (0.0-2.0) Sodium Level 142 MMOL/L (136-145) Potassium Level 3.9 MMOL/L (3.5-5.1) Chloride Level 105 MMOL/L (98-107) Carbon Dioxide Level 33 MMOL/L (21-32) H Anion Gap 4 mmol/L (5-15) L Blood Urea Nitrogen 18 mg/dL (7-18) Creatinine 0.3 MG/DL (0.55-1.30) L Estimat Glomerular Filtration Rate mL/min (>60) Glucose Level 97 MG/DL (74-106) Calcium Level 9.7 MG/DL (8.5-10.1) Height (Feet): 5 Height (Inches): 1.00 Weight (Pounds): 117 General Appearance: no apparent distress Cardiovascular: normal rate Respiratory/Chest: normal breath sounds, no respiratory distress Abdominal Exam: normal bowel sounds, non tender, soft Extremities: non-tender Jessica Nichole COMPLIANCE ANALYST Jun 01, 2019 14:08
--- NOTE | 2019-06-01 15:03 | Surgery Progress Note ---
Surgery Progress Note Subjective Symptoms: improved Objective Last 24 Hour Vital Signs Date Time Temp Pulse Resp B/P (MAP) Pulse Ox O2 Delivery O2 Flow Rate FiO2 06/01/19 12:00 97.2 70 18 140/80 (100) 95 06/01/19 08:00 97.4 78 20 170/90 (116) 97 06/01/19 04:00 97.9 77 18 143/69 (93) 96 06/01/19 00:00 98.1 88 18 133/64 (87) 96 05/31/19 21:00 Room Air 05/31/19 20:00 98.2 84 17 139/61 (87) 97 05/31/19 16:00 98.1 83 19 127/66 (86) 97 I&O Intake and Output 05/31/19 06/01/19 19:00 07:00 Intake Total 60 ml 510 ml Output Total 1100 ml Balance 60 ml -590 ml Free Water 150 ml Tube Feeding 60 ml 360 ml Output Urine Total 1100 ml # Voids 4 Dressing: saturated Wound: clean Cardiovascular: RSR Respiratory: decreased breath sounds Abdomen: soft, present bowel sounds Extremities: no tenderness, no cyanosis Laboratory Tests Test 06/01/19 05:29 White Blood Count 4.4 K/UL (4.8-10.8) L Red Blood Count 3.71 M/UL (4.20-5.40) L Hemoglobin 10.4 G/DL (12.0-16.0) L Hematocrit 32.9 % (37.0-47.0) L Mean Corpuscular Volume 89 FL (80-99) Mean Corpuscular Hemoglobin 27.9 PG (27.0-31.0) Mean Corpuscular Hemoglobin Concent 31.5 G/DL (32.0-36.0) L Red Cell Distribution Width 13.5 % (11.6-14.8) Platelet Count 231 K/UL (150-450) Mean Platelet Volume 10.5 FL (6.5-10.1) H Neutrophils (%) (Auto) 48.8 % (45.0-75.0) Lymphocytes (%) (Auto) 35.4 % (20.0-45.0) Monocytes (%) (Auto) 11.9 % (1.0-10.0) H Eosinophils (%) (Auto) 2.6 % (0.0-3.0) Basophils (%) (Auto) 1.2 % (0.0-2.0) Sodium Level 142 MMOL/L (136-145) Potassium Level 3.9 MMOL/L (3.5-5.1) Chloride Level 105 MMOL/L (98-107) Carbon Dioxide Level 33 MMOL/L (21-32) H Anion Gap 4 mmol/L (5-15) L Blood Urea Nitrogen 18 mg/dL (7-18) Creatinine 0.3 MG/DL (0.55-1.30) L Estimat Glomerular Filtration Rate mL/min (>60) Glucose Level 97 MG/DL (74-106) Calcium Level 9.7 MG/DL (8.5-10.1) Plan Problems: (1) Failure to thrive Assessment & Plan: Patient with decreased appetite and ability. No functional organic inability identified. Patient nutritionally deprived and forming wounds as well. Recommend psych eval Appreciate feeding tube placement by GI. as tolerated tube feeds (2) Severe protein-calorie malnutrition Assessment & Plan: AILY ESTIMATED NEEDS: Needs based on cardiac, wound/ 52kg 25-30 kcals/kg 9438-5729 total kcals 1.25-1.5 g protein/kg 65-78 g total protein 25-30 mL/kg 3798-0765 total fluid mLs NUTRITION DIAGNOSIS: * Increased kcal/prot intake needs R/T wound healing as evidenced by pt admitted w/ sacral, BL heels, and rt hip wounds per photos, pending eval, admitted w/ FTT dx w/ refusing to eat. CURRENT DIET:REGULAR PO DIET RECOMMENDATIONS: Liberalized REGULAR w/ poor PO + texture per MINE [employer]ORER ADDITIONAL RECOMMENDATIONS: * Calibrated bedscale wt for accurate CBW * Add LOW NA to diet w/ PO intake consistently >50% * Ensure Enlive TID w/ meals * Wound healing: Add MVI x 1, Vit C 250mg QD add Edu 1pkt BID * F/up w/ VELMA COUNT x 72 hrs * Monitor lytes, replete as needed (3) Decubital ulcer Assessment & Plan: Pt presented on admission with multiple pressure injuries. R heel is maroon with scattered purple areas . Base of heel is fluctuant. Pt complained of pain when minimally palpated.(L)4.5cm x (W)7cm. L heel maroon with fluctuance. Pt also complained of pain when minimally palpated.(L)4.7cm x (W)5cm. Scattered areas of hyperpigmentation noted to buttocks. Tx.Plan: Apply Cavilon Skin Barrier to R and L heel. Cover each heel with Optifoam drsg.Change every 7 days and prn. Apply Moisture Barrier Paste to buttocks. Cover with Optifoam drsg. Change every 3 days and prn. Reposition at least every 2hours or as tolerated. Off-load heels with pillow. Additional Comments d/c planning Howard Mcclellan Jun 01, 2019 15:03
--- NOTE | 2019-06-01 15:15 | NUR ---
NURSE NOTES: Patient picked up by ambulance, to be transported to home. Skin check done, no new issues noted. DC instructions given. Belongings check done and noted to be complete. IV removed, no s/s of infiltration. Gtube clamped. Discharged accompanied by ambulance personnel.
--- NOTE | 2019-06-02 | Progress Note ---
DATE: 06/01/2019 SUBJECTIVE: The patient is improved. Status post G-tube. placement. Compliant with medication. No behavior issues noted. Tolerating G-tube feeding. MENTAL STATUS EXAMINATION: Alert, oriented times self and place. Mood is depressed. Affect is constricted, congruent with mood. Thought process is concrete. Thought content, no suicidal or homicidal ideation. ASSESSMENT: 1. Failure to thrive. 2. Depression. PLAN: 1. We will continue current psychotropic medications. 2. Provide the patient reality orientation and supportive therapy. Cata Roblero M.D. DR: JOSE JOB#: [id number] CC: CHERYL
--- NOTE | 2019-06-03 09:11 | Discharge Summary ---
Discharge Summary Discharge Summary _ DATE OF ADMISSION: 05/22/2019 DATE OF DISCHARGE: 05/31/2019 DISCHARGED BY: Dr. KING REASON FOR ADMISSION: 79 years old female was brought to emergency department due to refusal to eat. According to family patient was not eaten for 3 days. Patient reported that she had no appetite. She denied any pain. No vomiting or diarrhea, no fever or chills. Patient WAS anxious , and simply stated that she does not want to eat. Upon evaluation blood pressure was elevated 183/96 , otherwise vital signs were stable. Laboratory work-up revealed no leukocytosis , stable hemoglobin and hematocrit. Stable electrolytes and renal parameters. Glucose 48. Stable LFT. Troponin - 0.052 , proBNP 1860. EKG revealed sinus rhythm , no acute ischemic changes. Urinalysis revealed +1 protein, +4 ketones , +2 leukocyte esterase , pyuria and few bacteria. Chest x-ray demonstrated no acute cardiopulmonary pathology. In emergency department patient started on the IV fluids ( prior to that received D50W for low blood sugar). Patient subsequently admitted for further management. CONSULTANTS: GI specialist Dr. [place] surgery Dr. Mcclellan psychiatrist [facility] COURSE: Patient admitted to medical surgical floor. Patient was continued on IV fluids. GI specialist closely followed. Bedside swallow evaluation revealed mild dysphagia. Patient was refusing to eat, poor oral intake continued. Psychiatrist seen and evaluated patient . Per psychiatrist , patient had dementia and major depressive disorder. Psychiatrist started patient on Remeron , and continued on Lexapro. Reality orientation provided. Patient subsequently undergone EGD with PEG placement on with findings of atrophic gastritis. PEG was successfully placed. Head of bed was elevated at all times. Abdominal binder initially applied to prevent pulling of the G-tube. Tube feeding started later with formula type and goal rate as per director corporate security recommendation r. Rate was slowly increased as tolerated to achieve goal rate. Patient was able to tolerate tube feeding. G-tube site care provided. Strict aspiration precautions maintained. Patient with evidence of severe protein calorie malnutrition. Protein supplements provided as per director corporate security recommendation . Tube feeding continued. Oral diet also provided for gratification if patient was willing to eat. GI prophylaxis provided. General surgeon seen and evaluated patient. Patient presented on admission with multiply pressure injuries , including right heel decubitus ulcer. Wound care provided as per surgeon recommendation , continue wound care at home. Hemoglobin and hematocrit were closely monitored with goal to keep hemoglobin above 7. Hemoglobin and hematocrit remained stable; prior to discharge hemoglobin 10.4 , hematocrit 22.9. Renal parameters and electrolytes were closely monitored . Phosphorus , magnesium, and potassium were replaced. Urine culture revealed strep hemolyticus with colony count only 10-20 , no antibiotics required, probably colonization. Patient remained afebrile no leukocytosis. Blood pressure was managed with small dose of hydrochlorothiazide and remained stable. Supportive care provided. Patient clinically stabilized and was ready for discharge home with home health services. FINAL DIAGNOSES: Failure to thrive Anorexia Dysphagia Status post EGD and PEG placement Atrophic gastritis Dementia Major depressive disorder Right heel decubitus ulcer, present on admission Severe protein -calorie malnutrition Electrolyte abnormalities/phosphorus, magnesium, potassium DISCHARGE MEDICATIONS: See Medication Reconciliation list. DISCHARGE INSTRUCTIONS: Patient was discharged home with home health services. Follow up with primary care provider in one week. I have been assigned to dictate discharge summary for this account. I was not involved in the patient's management. Janelle Colon NP Jun 03, 2019 09:11
== END 2019-06-01 16:37 | disposition home health service (06) | DRG 640 ==
LOC: EMR 20:06 → 4E 20:51 → EDBEDREQ 21:48
PROC: 0DH63UZ Insertion of Feeding Device into Stomach, Percutaneous Approach (ICD-10-PCS; principal; 2019-05-27 11:16)
DX: R62.7 Adult failure to thrive (principal); E43 Unspecified severe protein-calorie malnutrition; F03.91 Unspecified dementia, unspecified severity, with behavioral disturbance; R13.10 Dysphagia, unspecified; K29.40 Chronic atrophic gastritis without bleeding; E16.2 Hypoglycemia, unspecified; Z68.21 Body mass index [BMI] 21.0-21.9, adult; R63.0 Anorexia; F32.9 Major depressive disorder, single episode, unspecified; L89.619 Pressure ulcer of right heel, unspecified stage; E87.8 Other disorders of electrolyte and fluid balance, not elsewhere classified; L89.159 Pressure ulcer of sacral region, unspecified stage; H54.62 Unqualified visual loss, left eye, normal vision right eye
CPT/HCPCS: 36415; 71045; 80048; 80053; 81003; 82150; 82550; 82962; 83690; 83735; 83880; 84100; 84134; 84484; 85007; 85025; 85610; 85651; 85730; 86140; 87086; 93005; 94003; 94150; 96361; 96374; 96375; 99285; J7030; J8499